=== PATIENT | male | born 1950 | race Caucasian/White ===

== ENCOUNTER → 2016-12-16 | Outpatient (CLI) | payer OTHER ==
[~2016-12-16] MED LIST: FENO160T PO; INSU100V13 SC; LEVO75TA5 PO; METF500T4 PO; SIMV40TA3 PO
== END | disposition home or self-care (01) ==
LOC: STAR 12:16
PROVIDERS: ATTEND Urology
DX: Z01.818 Encounter for other preprocedural examination (principal); N40.1 Benign prostatic hyperplasia with lower urinary tract symptoms; E11.9 Type 2 diabetes mellitus without complications; N13.30 Unspecified hydronephrosis
CPT/HCPCS: 81001; 87086; 93005

== ENCOUNTER 2016-12-21 05:24 | Day surgery (SDC) | payer OTHER ==
[2016-12-16 13:39] LABS: PATH.CAST-FLAG NOT PRESENT; SPERM-FLAG NOT PRESENT; SRC-FLAG NOT PRESENT; XTAL-FLAG NOT PRESENT; YLC-FLAG NOT PRESENT
[~2016-12-21] VITALS: Ht 170.2 cm; Wt 79.1 kg
[2016-12-21] MEDS ORDERED: LACTATED RINGERS 1,000 ML IV SCH (06:23)
[2016-12-21 06:35] VITALS: BP 127/84
[2016-12-21] MEDS ORDERED: PROPOFOL 10 MG/ML, 20ML ONE (07:29)
[2016-12-21] MEDS ORDERED: ROCURONIUM 10 MG/ML ONE (07:29)
[2016-12-21] MEDS ORDERED: CEFAZOLIN 1,000 MG ONE (07:29)
[2016-12-21] MEDS ORDERED: GENTAMICIN 80 MG/2 ML ONE (07:29)
[2016-12-21] MEDS ORDERED: MIDAZOLAM 1 MG/ML, 2ML ONE (07:29)
[2016-12-21] MEDS ORDERED: FENTANYL PF 100 MCG/2ML ONE (07:29)
[2016-12-21] MEDS ORDERED: ONDANSETRON 2MG/ML, 2ML ONE (07:29)
[2016-12-21] MEDS ORDERED: DEXAMETHASONE 4 MG/ML, 1ML ONE (07:29)
[2016-12-21] MEDS ORDERED: SUCCINYLCHOLINE 20 MG/ML, 10ML ONE (07:29)
[2016-12-21] MEDS ORDERED: HYDROmorphone 1 MG/ML, 1ML IV PRN (08:00)
[2016-12-21] MEDS ORDERED: OXYcodone 5 MG/5 ML ORAL.SOL UDC PO PRN (08:00)
[2016-12-21] MEDS ORDERED: ONDANSETRON 2MG/ML, 2ML IVPush PRN (08:00)
[2016-12-21] MEDS ORDERED: MEPERIDINE/PF 25MG/0.5ML IVPush PRN (08:00)
[2016-12-21] MEDS ORDERED: MIDAZOLAM 1 MG/ML, 2ML IV PRN (08:00)
[2016-12-21] MEDS ORDERED: FENTANYL PF 100 MCG/2ML IV PRN (08:00)
[2016-12-21] MEDS ORDERED: ACETAMINOPHEN 325 MG TABLET PO PRN (08:00)
[2016-12-21] MEDS ORDERED: hydrALAzine 20 MG/ML, 1ML IV PRN (08:00)
[2016-12-21] MEDS ORDERED: PROMETHAZINE 25 MG/ML, 1ML IV PRN (08:00)
[2016-12-21] MEDS ORDERED: LABETALOL 5MG/ML, 20ML IV PRN (08:00)
[2016-12-21] MEDS ORDERED: ALBUTEROL SULFATE 2.5 MG/3 ML NPPB PRN (08:00)
== END 2016-12-21 10:40 ==
LOC: OUT 05:24
PROVIDERS: ATTEND Urology
DX: N13.30 Unspecified hydronephrosis (principal); N35.9 Urethral stricture, unspecified; N39.0 Urinary tract infection, site not specified; N40.1 Benign prostatic hyperplasia with lower urinary tract symptoms; N30.20 Other chronic cystitis without hematuria; E11.9 Type 2 diabetes mellitus without complications; Z87.442 Personal history of urinary calculi; Z98.890 Other specified postprocedural states
CPT/HCPCS: 52630; 81001; 82962; 87086; 87106; 88305; J0330; J0690; J1100; J1580; J2250; J2405; J2704; J3010; J7120

== ENCOUNTER → 2017-07-27 | Outpatient (CLI) | payer OTHER ==
[~2017-07-27] MED LIST changes: +ERGO500017 PO; +ERTA1VIA IV; +FERR324T5 PO; +FLUC200T4 PO; +LIDOCAINE-MPF 1%, 5ML ONE; +MIRA25TA PO; +NOVOLOG
== END ==
LOC: RAD 09:05
PROVIDERS: ATTEND Internal Medicine Infectious Disease
DX: Z45.2 Encounter for adjustment and management of vascular access device (principal); N10 Acute pyelonephritis
CPT/HCPCS: 36569; 76937; 77001; C1751

== ENCOUNTER 2017-08-30 10:04 | Emergency (ER) | payer OTHER ==
[~2017-08-30] VITALS: Ht 170.2 cm; Wt 77.3 kg
[~2017-08-30 10:04] MED LIST changes: -LIDOCAINE-MPF 1%, 5ML ONE
[2017-08-30 11:06] LABS: BASOPHILS # (AUTO) 0.06 x10^3/uL (0-0.1); BASOPHILS % (AUTO) 1 % (0-1); EOSINOPHILS # (AUTO) 0.04 x10^3/uL (0-0.4); EOSINOPHILS % (AUTO) 1 % (1-7); LYMPHOCYTES # (AUTO) 1.39 x10^3/uL (1-3.4); LYMPHOCYTES % (AUTO) 15 % (22-44); MD NO; MEAN CORPUSCULAR HEMOGLOBIN 27.4 pg (27.5-34.5); MEAN CORPUSCULAR VOLUME 83.2 fL (81-97); MEAN PLATELET VOLUME 7.7 fL (7.4-10.4); MONOCYTES # (AUTO) 1.05 x10^3/uL (0.2-0.8); MONOCYTES % (AUTO) 11 % (2-9); NEUTROPHILS # (AUTO) 6.89 x10^3/uL (1.8-6.8); NEUTROPHILS % (AUTO) 73 % (42-75); PLATELET COUNT 290 x10^3/uL (130-400); RED BLOOD COUNT 4.44 x10^6/uL (4.38-5.82); RED CELL DISTRIBUTION WIDTH 17.6 % (9.4-14.8)
[2017-08-30 11:09] LABS: ALBUMIN 3.4 g/dL (3.4-5.0); ANION GAP 10 mmol/L (5-15); CALCIUM 9.5 mg/dL (8.5-10.1); CHLORIDE 102 mmol/L (98-107); CREATININE 2.01 mg/dL (0.7-1.3)
[2017-08-30 11:28] LABS: MICROSCOPIC INDICATED
[2017-08-30 11:51] LABS: CULTURE INDICATED? YES
[2017-08-30] MEDS ORDERED: INSULIN REGULAR 100 UNITS/ML, 3ML VIAL ONE (13:24)
[2017-08-30] MEDS ORDERED: INSULIN REGULAR 100 UNITS/ML, 3ML VIAL SQ-INSULIN ONE (13:30)
[2017-08-30 14:53] VITALS: BP 135/72
== END 2017-08-30 14:55 | disposition home or self-care (01) ==
LOC: ED 11:38
DX: R31.0 Gross hematuria (principal); E11.65 Type 2 diabetes mellitus with hyperglycemia; I10 Essential (primary) hypertension; E03.9 Hypothyroidism, unspecified
CPT/HCPCS: 36415; 80048; 81001; 82040; 82962; 85025; 87086; 96372; 99284

== ENCOUNTER → 2017-09-21 | Outpatient (CLI) | payer OTHER ==
[~2017-09-21] MED LIST changes: +LIDOCAINE-MPF 1%, 2ML ONE; -METF500T4 PO; +METF500T5 PO; +VISIPAQUE 270 MG/ML, 50ML BOTTLE ONE
== END | disposition home or self-care (01) ==
LOC: RAD 11:37
PROVIDERS: ATTEND Internal Medicine Infectious Disease
DX: N39.0 Urinary tract infection, site not specified (principal); I82.A12 Acute embolism and thrombosis of left axillary vein; I82.B12 Acute embolism and thrombosis of left subclavian vein
CPT/HCPCS: 36569; 76937; 77001; C1751; C1769; J3490; Q9966

== ENCOUNTER 2017-10-08 08:45 | Emergency (ER) | payer OTHER ==
[~2017-10-08] VITALS: Ht 170.2 cm; Wt 78.8 kg
[~2017-10-08 08:45] MED LIST changes: -LIDOCAINE-MPF 1%, 2ML ONE; -VISIPAQUE 270 MG/ML, 50ML BOTTLE ONE
[2017-10-08 08:56] VITALS: BP 121/71
== END 2017-10-08 11:19 | disposition home or self-care (01) ==
LOC: ED 10:14
DX: Z43.6 Encounter for attention to other artificial openings of urinary tract (principal); E11.22 Type 2 diabetes mellitus with diabetic chronic kidney disease; N18.9 Chronic kidney disease, unspecified; Z79.899 Other long term (current) drug therapy
CPT/HCPCS: 99281

== ENCOUNTER 2017-10-24 06:34 | Day surgery (SDC) | payer OTHER ==
[~2017-10-24] VITALS: Ht 170.2 cm; Wt 79.0 kg
[2017-10-24 07:21] VITALS: BP 135/83
[2017-10-24] MEDS ORDERED: SODIUM CHLORIDE 0.9% 1,000 ML IV SCH (08:48)
[2017-10-24] MEDS ORDERED: MIDAZOLAM 1 MG/ML, 5ML ONE (08:57)
[2017-10-24] MEDS ORDERED: FENTANYL PF 100 MCG/2ML ONE (08:57)
[2017-10-24] MEDS ORDERED: NALOXONE 1 MG/ML, 2ML ONE (08:57)
[2017-10-24] MEDS ORDERED: FLUMAZENIL 0.1 MG/1 ML, 5ML ONE (08:57)
[2017-10-24] MEDS ORDERED: ERTAPENEM 1 GM in SODIUM CHLORIDE 0.9% 50 ML IV ONE (09:00)
[2017-10-24] MEDS ORDERED: LIDOCAINE-MPF 2%, 2ML ONE (09:01)
== END 2017-10-24 11:10 ==
LOC: OUT 06:34
PROVIDERS: ATTEND Urology
DX: N13.5 Crossing vessel and stricture of ureter without hydronephrosis (principal); N39.0 Urinary tract infection, site not specified; B68.9 Taeniasis, unspecified; E11.9 Type 2 diabetes mellitus without complications; I10 Essential (primary) hypertension; E03.9 Hypothyroidism, unspecified; Z79.899 Other long term (current) drug therapy; Z87.891 Personal history of nicotine dependence
CPT/HCPCS: 50435; C1729; C1751; C1769; J1335; J2250; J3010; J3490; J2310

== ENCOUNTER 2017-12-31 08:26 | Emergency (ER) | payer OTHER ==
[~2017-12-31] VITALS: Ht 170.2 cm; Wt 81.6 kg
[~2017-12-31 08:26] MED LIST changes: +DOCU-131 PO; +FERR325T18 PO; +INSU100I28 SQ; +METF500T17 PO; -METF500T5 PO
[2017-12-31 09:17] LABS: BASOPHILS # (AUTO) 0.03 x10^3/uL (0-0.1); BASOPHILS % (AUTO) 0 % (0-1); EOSINOPHILS # (AUTO) 0.09 x10^3/uL (0-0.4); EOSINOPHILS % (AUTO) 1 % (1-7); LYMPHOCYTES # (AUTO) 1.04 x10^3/uL (1-3.4); LYMPHOCYTES % (AUTO) 12 % (22-44); MD NO; MEAN CORPUSCULAR HGB CONC 33.2 g/dL (33.2-36.2); MEAN CORPUSCULAR VOLUME 81.2 fL (81-97); MONOCYTES # (AUTO) 0.84 x10^3/uL (0.2-0.8); MONOCYTES % (AUTO) 10 % (2-9); NEUTROPHILS # (AUTO) 6.39 x10^3/uL (1.8-6.8); NEUTROPHILS % (AUTO) 76 % (42-75); PLATELET COUNT 366 x10^3/uL (130-400); RED BLOOD COUNT 3.89 x10^6/uL (4.38-5.82); RED CELL DISTRIBUTION WIDTH 16.7 % (9.4-14.8)
[2017-12-31 09:29] LABS: CHLORIDE 104 mmol/L (98-107)
[2017-12-31 09:30] LABS: ALANINE AMINOTRANSFERASE 12 U/L (12-78); ALBUMIN 3.1 g/dL (3.4-5.0); ANION GAP 9 mmol/L (5-15); CALCIUM 9.2 mg/dL (8.5-10.1); CREATININE 2.61 mg/dL (0.7-1.3)
[2017-12-31 09:32] LABS: ALKALINE PHOSPHATASE 66 U/L (45-117); BILIRUBIN,TOTAL 0.3 mg/dL (0.2-1.0); TOTAL PROTEIN 8.2 g/dL (6.4-8.2)
[2017-12-31 09:35] LABS: MICROSCOPIC INDICATED
[2017-12-31 09:36] LABS: CULTURE INDICATED? YES
[2017-12-31] MEDS ORDERED: CEFTRIAXONE 1,000 MG ONE (10:06)
[2017-12-31] MEDS ORDERED: CEFTRIAXONE 1,000 MG IM ONE (10:30)
[2017-12-31 10:36] VITALS: BP 118/61
== END 2017-12-31 10:38 | disposition home or self-care (01) ==
LOC: ED 10:14
DX: N30.00 Acute cystitis without hematuria (principal); E11.22 Type 2 diabetes mellitus with diabetic chronic kidney disease; N18.9 Chronic kidney disease, unspecified; E03.9 Hypothyroidism, unspecified; E78.00 Pure hypercholesterolemia, unspecified
CPT/HCPCS: 36415; 80053; 81001; 83690; 85025; 87086; 96372; 99284; J0696; 87106

== ENCOUNTER 2018-01-02 07:49 | Inpatient (IN) | payer OTHER ==
[~2018-01-02] VITALS: Ht 170.2 cm; Wt 84.9 kg
[2018-01-02 08:32] LABS: MICROSCOPIC INDICATED
[2018-01-02 08:35] LABS: CULTURE INDICATED? YES
[2018-01-02 08:39] LABS: ALANINE AMINOTRANSFERASE 13 U/L (12-78); ALBUMIN 3.2 g/dL (3.4-5.0); ANION GAP 9 mmol/L (5-15); CALCIUM 9.2 mg/dL (8.5-10.1); CHLORIDE 103 mmol/L (98-107); CREATININE 2.77 mg/dL (0.7-1.3)
[2018-01-02 08:41] LABS: ALKALINE PHOSPHATASE 89 U/L (45-117); BILIRUBIN,TOTAL 0.2 mg/dL (0.2-1.0); TOTAL PROTEIN 9.1 g/dL (6.4-8.2)
[2018-01-02 09:45] LABS: BASOPHILS # (AUTO) 0.04 x10^3/uL (0-0.1); BASOPHILS % (AUTO) 1 % (0-1); EOSINOPHILS # (AUTO) 0.13 x10^3/uL (0-0.4); EOSINOPHILS % (AUTO) 2 % (1-7); LYMPHOCYTES # (AUTO) 1.18 x10^3/uL (1-3.4); LYMPHOCYTES % (AUTO) 14 % (22-44); MD NO; MEAN CORPUSCULAR HEMOGLOBIN 26.9 pg (27.5-34.5); MEAN CORPUSCULAR HGB CONC 32.9 g/dL (33.2-36.2); MEAN CORPUSCULAR VOLUME 81.6 fL (81-97); MEAN PLATELET VOLUME 7.1 fL (7.4-10.4); MONOCYTES # (AUTO) 0.82 x10^3/uL (0.2-0.8); MONOCYTES % (AUTO) 10 % (2-9); NEUTROPHILS # (AUTO) 6.18 x10^3/uL (1.8-6.8); NEUTROPHILS % (AUTO) 74 % (42-75); PLATELET COUNT 363 x10^3/uL (130-400); RED BLOOD COUNT 3.95 x10^6/uL (4.38-5.82); RED CELL DISTRIBUTION WIDTH 16.7 % (9.4-14.8)
[2018-01-02] MEDS ORDERED: morphine SULFATE 10 MG/ML, 1ML IVPush ONE ×2 (10:00→12:30)
[2018-01-02] MEDS ORDERED: MORPHINE SULFATE 4 MG/ML, 1ML ONE ×2 (10:30→12:17)
[2018-01-02] MEDS ORDERED: OXYcodone/APAP 5/325MG TABLET ONE (12:10)
[2018-01-02] MEDS ORDERED: ONDANSETRON 2MG/ML, 2ML ONE (12:17)
[2018-01-02] MEDS ORDERED: OXYcodone/APAP 5/325MG TABLET PO ONE (12:30)
[2018-01-02] MEDS ORDERED: CEFTRIAXONE PMX 1GM/50ML 50 ML IV ONE (12:30)
[2018-01-02] MEDS ORDERED: ONDANSETRON 2MG/ML, 2ML IVPush ONE (12:30)
[2018-01-02] MEDS ORDERED: CEFTRIAXONE PMX 1GM/50ML 50 ML IV SCH (13:30)
[2018-01-02] MEDS ORDERED: D5%-0.45% NACL 1,000 ML IV SCH (13:35)
[2018-01-02 13:46] VITALS: BP 137/81
[2018-01-02] MEDS ORDERED: HYDROcodone/APAP 5/325 TABLET PO PRN (14:00)
[2018-01-02] MEDS ORDERED: ACETAMINOPHEN 325 MG TABLET PO PRN (14:00)
[2018-01-02] MEDS ORDERED: POLYETHYLENE GLYCOL 17 GM PACKET PO PRN (14:00)
[2018-01-02] MEDS ORDERED: DEXTROSE 4 GM TAB.CHEW PO PRN (14:00)
[2018-01-02] MEDS ORDERED: DOCUSATE 100 MG CAPSULE PO PRN (14:00)
[2018-01-02] MEDS ORDERED: morphine SULFATE 10 MG/ML, 1ML IVPush PRN (14:00)
[2018-01-02] MEDS ORDERED: DEXTROSE 50%, 50ML SYRINGE IVPush PRN (14:00)
[2018-01-02] MEDS ORDERED: GLUCAGON 1 MG IM PRN (14:00)
[2018-01-02] MEDS ORDERED: ONDANSETRON 2MG/ML, 2ML IVPush PRN (14:00)
[2018-01-02 14:35] VITALS: BP 157/81
[2018-01-02] MEDS: INSULIN LISPRO 100 UNITS/ML, PEN SQ-INSULIN SCH ×2 (16:00→21:22)
[2018-01-02 19:25] VITALS: BP 114/61
[2018-01-02] MEDS ORDERED: INSULIN GLARGINE 100 UNITS/ML, PEN SQ-INSULIN SCH (21:00)
[2018-01-02] MEDS: SODIUM CHLORIDE FLUSH 10ML SYR IVF SCH (21:03)
[2018-01-03 01:28] VITALS: BP 121/72
[2018-01-03 05:27] LABS: BASOPHILS # (AUTO) 0.04 x10^3/uL (0-0.1); BASOPHILS % (AUTO) 1 % (0-1); EOSINOPHILS # (AUTO) 0.16 x10^3/uL (0-0.4); EOSINOPHILS % (AUTO) 3 % (1-7); LYMPHOCYTES # (AUTO) 1.21 x10^3/uL (1-3.4); LYMPHOCYTES % (AUTO) 19 % (22-44); MD NO; MEAN CORPUSCULAR HEMOGLOBIN 27.1 pg (27.5-34.5); MEAN CORPUSCULAR VOLUME 82.1 fL (81-97); MEAN PLATELET VOLUME 7.4 fL (7.4-10.4); MONOCYTES # (AUTO) 0.84 x10^3/uL (0.2-0.8); MONOCYTES % (AUTO) 13 % (2-9); NEUTROPHILS % (AUTO) 65 % (42-75); PLATELET COUNT 295 x10^3/uL (130-400); RED BLOOD COUNT 3.63 x10^6/uL (4.38-5.82); RED CELL DISTRIBUTION WIDTH 16.3 % (9.4-14.8)
[2018-01-03 05:34] LABS: ANION GAP 10 mmol/L (5-15); CHLORIDE 101 mmol/L (98-107)
[2018-01-03 05:35] LABS: CREATININE 2.79 mg/dL (0.7-1.3)
[2018-01-03 06:48] VITALS: BP 114/70
[2018-01-03] MEDS: INSULIN LISPRO 100 UNITS/ML, PEN SQ-INSULIN SCH (07:42)
[2018-01-03] MEDS ORDERED: LEVOTHYROXINE 75 MCG TABLET PO SCH (09:00)
[2018-01-03] MEDS: SODIUM CHLORIDE FLUSH 10ML SYR IVF SCH (09:00)
[2018-01-03] MEDS ORDERED: INSULIN GLARGINE 100 UNITS/ML, PEN SQ-INSULIN SCH (09:00)
[2018-01-03] MEDS ORDERED: SENNA/DOCUSATE TABLET PO SCH (09:00)
== END 2018-01-03 11:40 | disposition home or self-care (01) | DRG 683 ==
LOC: ED 10:09 → EDIP 12:51 → 4NOR 13:34 → DCLOUNGE 01-03 11:34
PROVIDERS: ADMIT Family Medicine; ATTEND Family Medicine
DX: N17.9 Acute kidney failure, unspecified (principal); N39.0 Urinary tract infection, site not specified; N13.6 Pyonephrosis; D64.9 Anemia, unspecified; E03.9 Hypothyroidism, unspecified; E11.22 Type 2 diabetes mellitus with diabetic chronic kidney disease; E78.00 Pure hypercholesterolemia, unspecified; E78.5 Hyperlipidemia, unspecified; N18.9 Chronic kidney disease, unspecified; N26.1 Atrophy of kidney (terminal); Z80.42 Family history of malignant neoplasm of prostate; Z83.3 Family history of diabetes mellitus; Z87.440 Personal history of urinary (tract) infections; Z90.5 Acquired absence of kidney; Z93.6 Other artificial openings of urinary tract status
CPT/HCPCS: 36415; 74176; 76770; 80048; 80053; 81001; 82962; 83735; 85025; 87086; 87106; 96374; 96375; 96376; 99285; G0378; J0696; J2405; J1815; J2270

== ENCOUNTER 2018-01-27 11:24 | Emergency (ER) | payer OTHER ==
[~2018-01-27] VITALS: Ht 170.2 cm; Wt 83.0 kg
[2018-01-27 12:30] LABS: BASOPHILS # (AUTO) 0.08 x10^3/uL (0-0.1); BASOPHILS % (AUTO) 1 % (0-1); EOSINOPHILS # (AUTO) 0.19 x10^3/uL (0-0.4); EOSINOPHILS % (AUTO) 3 % (1-7); LYMPHOCYTES # (AUTO) 1.29 x10^3/uL (1-3.4); LYMPHOCYTES % (AUTO) 19 % (22-44); MD NO; MEAN CORPUSCULAR HEMOGLOBIN 26.7 pg (27.5-34.5); MEAN CORPUSCULAR HGB CONC 32.8 g/dL (33.2-36.2); MEAN CORPUSCULAR VOLUME 81.5 fL (81-97); MEAN PLATELET VOLUME 7.2 fL (7.4-10.4); MONOCYTES # (AUTO) 0.64 x10^3/uL (0.2-0.8); MONOCYTES % (AUTO) 9 % (2-9); NEUTROPHILS # (AUTO) 4.63 x10^3/uL (1.8-6.8); NEUTROPHILS % (AUTO) 68 % (42-75); PLATELET COUNT 362 x10^3/uL (130-400); RED BLOOD COUNT 3.87 x10^6/uL (4.38-5.82); RED CELL DISTRIBUTION WIDTH 16.5 % (9.4-14.8)
[2018-01-27] MEDS ORDERED: PHENAZOPYRIDINE 200 MG TABLET PO ONE (12:30)
[2018-01-27 12:44] LABS: ALANINE AMINOTRANSFERASE 19 U/L (12-78); ALBUMIN 2.9 g/dL (3.4-5.0); ANION GAP 7 mmol/L (5-15); CHLORIDE 108 mmol/L (98-107); CREATININE 2.63 mg/dL (0.7-1.3)
[2018-01-27 12:47] LABS: ALKALINE PHOSPHATASE 72 U/L (45-117); BILIRUBIN,TOTAL 0.2 mg/dL (0.2-1.0); TOTAL PROTEIN 8.1 g/dL (6.4-8.2)
[2018-01-27 12:55] LABS: MICROSCOPIC INDICATED
[2018-01-27 13:14] LABS: CULTURE INDICATED? YES
[2018-01-27 13:16] LABS: MICROSCOPIC AUTO
[2018-01-27 13:17] LABS: CULTURE INDICATED? YES
[2018-01-27] MEDS ORDERED: OXYcodone/APAP 5/325MG TABLET PO ONE (13:30)
[2018-01-27] MEDS ORDERED: PHENAZOPYRIDINE 200 MG TABLET ONE (13:31)
[2018-01-27] MEDS ORDERED: OXYcodone/APAP 5/325MG TABLET ONE (13:32)
[2018-01-27] MEDS ORDERED: OPIUM/BELLADONNA SUPP.RECT 16.2-60 MG PR ONE (15:30)
[2018-01-27 16:05] VITALS: BP 131/73
== END 2018-01-27 16:15 | disposition home or self-care (01) ==
LOC: ED 12:11
DX: N32.89 Other specified disorders of bladder (principal); E11.9 Type 2 diabetes mellitus without complications; E78.00 Pure hypercholesterolemia, unspecified; E03.9 Hypothyroidism, unspecified; Z87.891 Personal history of nicotine dependence
CPT/HCPCS: 36415; 76770; 80053; 81001; 85025; 87086; 87106; 99285

== ENCOUNTER → 2018-02-23 | Outpatient (CLI) | payer OTHER ==
[2018-02-23 09:50] LABS: BASOPHILS # (AUTO) 0.05 x10^3/uL (0-0.1); BASOPHILS % (AUTO) 0 % (0-1); EOSINOPHILS # (AUTO) 0.12 x10^3/uL (0-0.4); EOSINOPHILS % (AUTO) 1 % (1-7); LYMPHOCYTES # (AUTO) 1.47 x10^3/uL (1-3.4); LYMPHOCYTES % (AUTO) 13 % (22-44); MD NO; MEAN CORPUSCULAR HEMOGLOBIN 26.3 pg (27.5-34.5); MEAN CORPUSCULAR HGB CONC 32.8 g/dL (33.2-36.2); MEAN CORPUSCULAR VOLUME 80.4 fL (81-97); MONOCYTES # (AUTO) 0.96 x10^3/uL (0.2-0.8); MONOCYTES % (AUTO) 9 % (2-9); NEUTROPHILS # (AUTO) 8.33 x10^3/uL (1.8-6.8); NEUTROPHILS % (AUTO) 76 % (42-75); PLATELET COUNT 471 x10^3/uL (130-400); RED BLOOD COUNT 4.53 x10^6/uL (4.38-5.82); RED CELL DISTRIBUTION WIDTH 16.7 % (9.4-14.8)
[2018-02-23 09:55] LABS: INTERNATIONAL NORMALIZED RATIO 1.02 (0.93-1.1); PROTHROMBIN TIME 10.8 Seconds (9.6-11.5)
[2018-02-23 09:56] LABS: ALANINE AMINOTRANSFERASE 15 U/L (12-78); ALBUMIN 3.6 g/dL (3.4-5.0); ANION GAP 9 mmol/L (5-15); CHLORIDE 105 mmol/L (98-107); CREATININE 3.12 mg/dL (0.7-1.3)
[2018-02-23 09:59] LABS: ALKALINE PHOSPHATASE 68 U/L (45-117); BILIRUBIN,TOTAL 0.2 mg/dL (0.2-1.0); TOTAL PROTEIN 9.7 g/dL (6.4-8.2)
[2018-02-23 12:41] LABS: MICROSCOPIC INDICATED
== END | disposition home or self-care (01) ==
LOC: STAR 08:27
PROVIDERS: ATTEND Family Medicine
DX: Z01.818 Encounter for other preprocedural examination (principal); N35.919 Unspecified urethral stricture, male, unspecified site; R00.0 Tachycardia, unspecified
CPT/HCPCS: 36415; 80053; 81001; 85025; 85610; 85730; 87086; 87106; 93005

== ENCOUNTER 2018-03-26 13:17 | Inpatient (IN) | payer MEDICARE, OTHER ==
[~2018-03-26] VITALS: Ht 170.2 cm; Wt 81.3 kg
[~2018-03-26 13:17] MED LIST changes: +INSU100I11 SQ-INSULIN
[2018-03-26 14:21] LABS: BASOPHILS # (AUTO) 0.13 x10^3/uL (0-0.1); BASOPHILS % (AUTO) 2 % (0-1); EOSINOPHILS # (AUTO) 0.32 x10^3/uL (0-0.4); EOSINOPHILS % (AUTO) 4 % (1-7); LYMPHOCYTES # (AUTO) 1.68 x10^3/uL (1-3.4); LYMPHOCYTES % (AUTO) 20 % (22-44); MD NO; MEAN CORPUSCULAR HEMOGLOBIN 27.6 pg (27.5-34.5); MEAN CORPUSCULAR HGB CONC 33.3 g/dL (33.2-36.2); MEAN PLATELET VOLUME 7.2 fL (7.4-10.4); MONOCYTES # (AUTO) 0.63 x10^3/uL (0.2-0.8); MONOCYTES % (AUTO) 8 % (2-9); NEUTROPHILS # (AUTO) 5.66 x10^3/uL (1.8-6.8); NEUTROPHILS % (AUTO) 67 % (42-75); PLATELET COUNT 393 x10^3/uL (130-400); RED BLOOD COUNT 3.82 x10^6/uL (4.38-5.82); RED CELL DISTRIBUTION WIDTH 19.1 % (9.4-14.8)
[2018-03-26 14:33] LABS: ALANINE AMINOTRANSFERASE 19 U/L (12-78); ALBUMIN 3.5 g/dL (3.4-5.0); ANION GAP 12 mmol/L (5-15); CALCIUM 9.2 mg/dL (8.5-10.1); CHLORIDE 101 mmol/L (98-107); CREATININE 5.75 mg/dL (0.7-1.3)
[2018-03-26 14:35] LABS: ALKALINE PHOSPHATASE 78 U/L (45-117); BILIRUBIN,TOTAL 0.2 mg/dL (0.2-1.0); TOTAL PROTEIN 8.7 g/dL (6.4-8.2)
--- NOTE | 2018-03-26 15:29 | NUR ---
Pt ambulatory from [facility] to 21
--- NOTE | 2018-03-26 15:47 | NUR ---
report rcv'd from Leatha TOMAS. Care assumed. Pt to CT
[2018-03-26 15:51] LABS: CULTURE INDICATED? YES; MICROSCOPIC INDICATED
[2018-03-26] MEDS ORDERED: INSU100C5 SQ-INSULIN (16:01)
[2018-03-26] MEDS ORDERED: SODIUM CHLORIDE 0.9% 1,000 ML IV ONE (16:08)
[2018-03-26] MEDS ORDERED: GLUCAGON 1 MG IM PRN (17:00)
[2018-03-26] MEDS ORDERED: SODIUM CHLORIDE FLUSH 10ML SYR IVF ONE (17:00)
[2018-03-26] MEDS ORDERED: DEXTROSE 4 GM TAB.CHEW PO PRN (17:00)
[2018-03-26] MEDS ORDERED: POLYETHYLENE GLYCOL 17 GM PACKET PO PRN (17:00)
[2018-03-26] MEDS ORDERED: DEXTROSE 50%, 50ML SYRINGE IVPush PRN (17:00)
[2018-03-26] MEDS ORDERED: HYDROcodone/APAP 5/325 TABLET PO PRN (17:00)
[2018-03-26] MEDS ORDERED: DOCUSATE 100 MG CAPSULE PO PRN (17:00)
[2018-03-26] MEDS ORDERED: morphine SULFATE 10 MG/ML, 1ML IVPush PRN (17:00)
--- NOTE | 2018-03-26 17:33 | NUR ---
HANCOCK CATH PLACED, CONTINUOUS BLADDER IRRIGATION IN PROGRESS, CLEAR DRAINAGE.
--- NOTE | 2018-03-26 17:47 | NUR ---
report called. cont bladder irrigation in progress. ivf unfusing at time of transfer
[2018-03-26] MEDS ORDERED: LACTATED RINGERS 500 ML IVBOLUS ONE (19:30)
[2018-03-26 20:00] VITALS: BP 128/63
[2018-03-26] MEDS: SODIUM CHLORIDE FLUSH 10ML SYR IVF SCH (21:00)
[2018-03-26] MEDS: FAMOTIDINE 20 MG TABLET PO SCH (21:45)
[2018-03-26] MEDS: INSULIN LISPRO 100 UNITS/ML, PEN SQ-INSULIN SCH (22:22)
[2018-03-26] MEDS: INSULIN GLARGINE 100 UNITS/ML, PEN SQ-INSULIN SCH (22:23)
[2018-03-27 01:15] VITALS: BP 121/68
[2018-03-27] MEDS: SODIUM CHLORIDE 0.9% 1,000 ML IV SCH ×2 (05:45→15:15)
[2018-03-27 06:00] LABS: BASOPHILS # (AUTO) 0.08 x10^3/uL (0-0.1); BASOPHILS % (AUTO) 1 % (0-1); EOSINOPHILS # (AUTO) 0.37 x10^3/uL (0-0.4); EOSINOPHILS % (AUTO) 4 % (1-7); LYMPHOCYTES # (AUTO) 3.11 x10^3/uL (1-3.4); LYMPHOCYTES % (AUTO) 36 % (22-44); MD NO; MEAN CORPUSCULAR HGB CONC 32.4 g/dL (33.2-36.2); MEAN CORPUSCULAR VOLUME 83.5 fL (81-97); MEAN PLATELET VOLUME 7.5 fL (7.4-10.4); MONOCYTES # (AUTO) 0.87 x10^3/uL (0.2-0.8); MONOCYTES % (AUTO) 10 % (2-9); NEUTROPHILS % (AUTO) 49 % (42-75); PLATELET COUNT 369 x10^3/uL (130-400); RED BLOOD COUNT 3.45 x10^6/uL (4.38-5.82)
[2018-03-27 06:06] LABS: ALBUMIN 3.1 g/dL (3.4-5.0); ANION GAP 12 mmol/L (5-15); CALCIUM 8.5 mg/dL (8.5-10.1); CHLORIDE 110 mmol/L (98-107)
[2018-03-27 06:07] LABS: CREATININE 5.11 mg/dL (0.7-1.3)
[2018-03-27 06:19] VITALS: BP 126/75
[2018-03-27] MEDS: INSULIN LISPRO 100 UNITS/ML, PEN SQ-INSULIN SCH ×4 (07:00→22:09)
[2018-03-27] MEDS: SODIUM CHLORIDE FLUSH 10ML SYR IVF SCH ×2 (08:26→21:53)
[2018-03-27] MEDS: INSULIN GLARGINE 100 UNITS/ML, PEN SQ-INSULIN SCH ×2 (08:26→22:09)
[2018-03-27] MEDS: FENOFIBRATE 54 MG TABLET PO SCH (08:52)
[2018-03-27] MEDS: LEVOTHYROXINE 75 MCG TABLET PO SCH (08:52)
[2018-03-27] MEDS: FAMOTIDINE 20 MG TABLET PO SCH (08:52)
[2018-03-27] MEDS: SENNA/DOCUSATE TABLET PO SCH (08:52)
[2018-03-27 12:16] VITALS: BP 134/76
[2018-03-27 19:12] VITALS: BP 124/68
[2018-03-27] MEDS: ONDANSETRON 2MG/ML, 2ML IVPush PRN (21:53)
[2018-03-28 01:26] VITALS: BP 122/73
[2018-03-28] MEDS: ACETAMINOPHEN 325 MG TABLET PO PRN ×2 (01:33→22:03)
[2018-03-28 06:33] LABS: ANION GAP 12 mmol/L (5-15); CALCIUM 7.8 mg/dL (8.5-10.1); CHLORIDE 113 mmol/L (98-107)
[2018-03-28 06:40] LABS: % IRON SATURATION 23 % (20-55); ALANINE AMINOTRANSFERASE 10 U/L (12-78); ALKALINE PHOSPHATASE 48 U/L (45-117); BILIRUBIN,TOTAL 0.3 mg/dL (0.2-1.0); CREATININE 4.89 mg/dL (0.7-1.3); IRON LEVEL 66 mcg/dL (65-175); TOTAL IRON BINDING CAPACITY 292 mcg/dL (250-450); TOTAL PROTEIN 7.2 g/dL (6.4-8.2)
[2018-03-28 06:41] LABS: BASOPHILS # (AUTO) 0.08 x10^3/uL (0-0.1); BASOPHILS % (AUTO) 1 % (0-1); EOSINOPHILS # (AUTO) 0.34 x10^3/uL (0-0.4); EOSINOPHILS % (AUTO) 6 % (1-7); LYMPHOCYTES # (AUTO) 1.81 x10^3/uL (1-3.4); LYMPHOCYTES % (AUTO) 31 % (22-44); MD NO; MEAN CORPUSCULAR HEMOGLOBIN 27.6 pg (27.5-34.5); MEAN CORPUSCULAR HGB CONC 33.2 g/dL (33.2-36.2); MEAN CORPUSCULAR VOLUME 83.2 fL (81-97); MEAN PLATELET VOLUME 7.5 fL (7.4-10.4); MONOCYTES # (AUTO) 0.61 x10^3/uL (0.2-0.8); MONOCYTES % (AUTO) 10 % (2-9); NEUTROPHILS # (AUTO) 3.05 x10^3/uL (1.8-6.8); NEUTROPHILS % (AUTO) 52 % (42-75); PLATELET COUNT 299 x10^3/uL (130-400); RED BLOOD COUNT 3.28 x10^6/uL (4.38-5.82); RED CELL DISTRIBUTION WIDTH 19.2 % (9.4-14.8)
[2018-03-28] MEDS: INSULIN LISPRO 100 UNITS/ML, PEN SQ-INSULIN SCH ×4 (07:00→21:00)
[2018-03-28 07:38] VITALS: BP 129/73
[2018-03-28] MEDS: INSULIN GLARGINE 100 UNITS/ML, PEN SQ-INSULIN SCH ×2 (08:51→22:25)
[2018-03-28] MEDS: LEVOTHYROXINE 75 MCG TABLET PO SCH (08:52)
[2018-03-28] MEDS: FENOFIBRATE 54 MG TABLET PO SCH (08:52)
[2018-03-28] MEDS: SENNA/DOCUSATE TABLET PO SCH (08:52)
[2018-03-28] MEDS: FAMOTIDINE 20 MG TABLET PO SCH (08:52)
[2018-03-28] MEDS ORDERED: CEFTRIAXONE PMX 1GM/50ML 50 ML IV SCH (09:00)
[2018-03-28] MEDS ORDERED: ARANESP 100 MCG/ML **ESRD SQ SCH (11:30)
[2018-03-28] MEDS: SODIUM CHLORIDE FLUSH 10ML SYR IVF SCH ×2 (11:36→22:04)
[2018-03-28 15:10] VITALS: BP 112/75
[2018-03-28 18:47] VITALS: BP 125/74
[2018-03-29 01:44] VITALS: BP 130/75
[2018-03-29] MEDS: INSULIN LISPRO 100 UNITS/ML, PEN SQ-INSULIN SCH ×4 (06:23→21:00)
[2018-03-29] MEDS: ACETAMINOPHEN 325 MG TABLET PO PRN (06:24)
[2018-03-29 06:30] VITALS: BP 149/83
[2018-03-29 06:34] LABS: BASOPHILS # (AUTO) 0.07 x10^3/uL (0-0.1); BASOPHILS % (AUTO) 1 % (0-1); EOSINOPHILS % (AUTO) 6 % (1-7); LYMPHOCYTES # (AUTO) 2.42 x10^3/uL (1-3.4); LYMPHOCYTES % (AUTO) 34 % (22-44); MD NO; MEAN CORPUSCULAR HEMOGLOBIN 27.9 pg (27.5-34.5); MEAN CORPUSCULAR HGB CONC 33.8 g/dL (33.2-36.2); MEAN CORPUSCULAR VOLUME 82.5 fL (81-97); MEAN PLATELET VOLUME 7.2 fL (7.4-10.4); MONOCYTES # (AUTO) 0.73 x10^3/uL (0.2-0.8); MONOCYTES % (AUTO) 10 % (2-9); NEUTROPHILS # (AUTO) 3.62 x10^3/uL (1.8-6.8); NEUTROPHILS % (AUTO) 50 % (42-75); PLATELET COUNT 331 x10^3/uL (130-400); RED BLOOD COUNT 3.41 x10^6/uL (4.38-5.82); RED CELL DISTRIBUTION WIDTH 19.2 % (9.4-14.8)
[2018-03-29 06:41] LABS: ALANINE AMINOTRANSFERASE 11 U/L (12-78); ALBUMIN 3.1 g/dL (3.4-5.0); ANION GAP 10 mmol/L (5-15); CALCIUM 8.9 mg/dL (8.5-10.1); CHLORIDE 112 mmol/L (98-107); CREATININE 5.36 mg/dL (0.7-1.3)
[2018-03-29 06:43] LABS: ALKALINE PHOSPHATASE 57 U/L (45-117); BILIRUBIN,TOTAL 0.2 mg/dL (0.2-1.0); TOTAL PROTEIN 7.5 g/dL (6.4-8.2)
[2018-03-29] MEDS: ONDANSETRON 2MG/ML, 2ML IVPush PRN (07:06)
[2018-03-29] MEDS: FENOFIBRATE 54 MG TABLET PO SCH (09:12)
[2018-03-29] MEDS: SENNA/DOCUSATE TABLET PO SCH ×2 (09:12→09:19)
[2018-03-29] MEDS: FAMOTIDINE 20 MG TABLET PO SCH (09:12)
[2018-03-29] MEDS: LEVOTHYROXINE 75 MCG TABLET PO SCH (09:13)
[2018-03-29] MEDS: SODIUM CHLORIDE FLUSH 10ML SYR IVF SCH ×2 (09:16→22:22)
[2018-03-29] MEDS: INSULIN GLARGINE 100 UNITS/ML, PEN SQ-INSULIN SCH ×2 (09:16→22:45)
[2018-03-29 13:14] VITALS: BP 124/73
[2018-03-29] MEDS: SODIUM CHLORIDE 0.45% 1,000 ML IV SCH (13:55)
[2018-03-29 18:44] VITALS: BP 127/74
[2018-03-30] MEDS: SODIUM CHLORIDE 0.45% 1,000 ML IV SCH (00:42)
[2018-03-30] MEDS: ONDANSETRON 2MG/ML, 2ML IVPush PRN (00:42)
[2018-03-30 00:57] VITALS: BP 138/80
[2018-03-30 06:09] LABS: BASOPHILS # (AUTO) 0.08 x10^3/uL (0-0.1); BASOPHILS % (AUTO) 1 % (0-1); EOSINOPHILS # (AUTO) 0.34 x10^3/uL (0-0.4); EOSINOPHILS % (AUTO) 5 % (1-7); LYMPHOCYTES # (AUTO) 2.04 x10^3/uL (1-3.4); LYMPHOCYTES % (AUTO) 31 % (22-44); MD NO; MEAN CORPUSCULAR HEMOGLOBIN 27.5 pg (27.5-34.5); MEAN CORPUSCULAR HGB CONC 32.9 g/dL (33.2-36.2); MEAN CORPUSCULAR VOLUME 83.4 fL (81-97); MEAN PLATELET VOLUME 7.5 fL (7.4-10.4); MONOCYTES # (AUTO) 0.59 x10^3/uL (0.2-0.8); MONOCYTES % (AUTO) 9 % (2-9); NEUTROPHILS # (AUTO) 3.53 x10^3/uL (1.8-6.8); NEUTROPHILS % (AUTO) 54 % (42-75); PLATELET COUNT 309 x10^3/uL (130-400); RED BLOOD COUNT 3.34 x10^6/uL (4.38-5.82); RED CELL DISTRIBUTION WIDTH 19.1 % (9.4-14.8)
[2018-03-30 06:10] LABS: ANION GAP 7 mmol/L (5-15); CALCIUM 8.6 mg/dL (8.5-10.1); CHLORIDE 111 mmol/L (98-107); CREATININE 4.98 mg/dL (0.7-1.3)
[2018-03-30] MEDS: INSULIN LISPRO 100 UNITS/ML, PEN SQ-INSULIN SCH ×2 (06:18→11:15)
[2018-03-30 06:32] VITALS: BP 127/80
[2018-03-30] MEDS: FAMOTIDINE 20 MG TABLET PO SCH (09:02)
[2018-03-30] MEDS: FENOFIBRATE 54 MG TABLET PO SCH (09:02)
[2018-03-30] MEDS: LEVOTHYROXINE 75 MCG TABLET PO SCH (09:03)
[2018-03-30] MEDS: SENNA/DOCUSATE TABLET PO SCH (09:03)
[2018-03-30] MEDS: SODIUM CHLORIDE FLUSH 10ML SYR IVF SCH (09:04)
[2018-03-30] MEDS: INSULIN GLARGINE 100 UNITS/ML, PEN SQ-INSULIN SCH (09:04)
[2018-03-30 14:16] VITALS: BP 113/66
== END 2018-03-30 15:35 | disposition home or self-care (01) | DRG 919 ==
LOC: ED 15:41 → SUATTDRO 16:36 → EDIP 17:00 → 4NOR 17:54 → DCLOUNGE 03-30 15:25
PROVIDERS: ADMIT Family Medicine; ATTEND Family Medicine
PROC: 0T9B70Z Drainage of Bladder with Drainage Device, Via Natural or Artificial Opening (ICD-10-PCS; principal; 2018-03-28)
DX: N99.820 Postprocedural hemorrhage of a genitourinary system organ or structure following a genitourinary system procedure (principal); N17.0 Acute kidney failure with tubular necrosis; I12.0 Hypertensive chronic kidney disease with stage 5 chronic kidney disease or end stage renal disease; N13.30 Unspecified hydronephrosis; N18.5 Chronic kidney disease, stage 5; R31.0 Gross hematuria; D63.8 Anemia in other chronic diseases classified elsewhere; E03.9 Hypothyroidism, unspecified; E11.22 Type 2 diabetes mellitus with diabetic chronic kidney disease; E78.00 Pure hypercholesterolemia, unspecified; G51.0 Bell's palsy; E78.5 Hyperlipidemia, unspecified; N25.0 Renal osteodystrophy; N40.0 Benign prostatic hyperplasia without lower urinary tract symptoms; N42.89 Other specified disorders of prostate; Z80.42 Family history of malignant neoplasm of prostate; Z86.73 Personal history of transient ischemic attack (TIA), and cerebral infarction without residual deficits; Z87.440 Personal history of urinary (tract) infections; Z90.5 Acquired absence of kidney; Z90.79 Acquired absence of other genital organ(s); Z93.6 Other artificial openings of urinary tract status; Z79.899 Other long term (current) drug therapy; Y83.8 Other surgical procedures as the cause of abnormal reaction of the patient, or of later complication, without mention of misadventure at the time of the procedure
CPT/HCPCS: 36415; 51702; 74176; 80053; 80069; 81001; 82306; 82728; 82962; 83540; 83550; 83690; 83735; 83970; 84100; 84550; 85025; 87040; 87086; 99285; G0378; J0696; J0882; J2405; J7120; J1815; J7030

== ENCOUNTER 2018-04-01 15:47 | Inpatient (IN) | payer MEDICARE, OTHER ==
[~2018-04-01] VITALS: Ht 170.2 cm; Wt 80.0 kg
[~2018-04-01 15:47] MED LIST changes: +INSU100C5 SQ-INSULIN
[2018-04-01 16:47] LABS: CULTURE INDICATED? YES; MICROSCOPIC INDICATED
[2018-04-01 17:00] LABS: BASOPHILS # (AUTO) 0.15 x10^3/uL (0-0.1); BASOPHILS % (AUTO) 2 % (0-1); EOSINOPHILS # (AUTO) 0.31 x10^3/uL (0-0.4); EOSINOPHILS % (AUTO) 4 % (1-7); LYMPHOCYTES # (AUTO) 1.58 x10^3/uL (1-3.4); LYMPHOCYTES % (AUTO) 18 % (22-44); MD NO; MEAN CORPUSCULAR HEMOGLOBIN 27.9 pg (27.5-34.5); MEAN CORPUSCULAR HGB CONC 33.2 g/dL (33.2-36.2); MEAN CORPUSCULAR VOLUME 84.1 fL (81-97); MEAN PLATELET VOLUME 7.3 fL (7.4-10.4); MONOCYTES # (AUTO) 0.78 x10^3/uL (0.2-0.8); MONOCYTES % (AUTO) 9 % (2-9); NEUTROPHILS # (AUTO) 5.81 x10^3/uL (1.8-6.8); NEUTROPHILS % (AUTO) 67 % (42-75); PLATELET COUNT 346 x10^3/uL (130-400); RED BLOOD COUNT 3.45 x10^6/uL (4.38-5.82); RED CELL DISTRIBUTION WIDTH 19.4 % (9.4-14.8)
[2018-04-01 17:12] LABS: ALBUMIN 3.4 g/dL (3.4-5.0); ANION GAP 8 mmol/L (5-15); CALCIUM 8.9 mg/dL (8.5-10.1); CHLORIDE 109 mmol/L (98-107); CREATININE 5.26 mg/dL (0.7-1.3)
[2018-04-01] MEDS ORDERED: CEFTRIAXONE PMX 1GM/50ML 50 ML ONE (17:14)
--- NOTE | 2018-04-01 17:15 | NUR ---
no bc per dr allen
[2018-04-01] MEDS ORDERED: CEFTRIAXONE PMX 1GM/50ML 50 ML IVPB ONE (18:00)
--- NOTE | 2018-04-01 19:03 | NUR ---
ASSUMED CARE OF PT REPORT FROM ANNE-MARIE
--- NOTE | 2018-04-01 19:33 | NUR ---
AWAITING ADMIT HOUSE STAFF AT BEDSIDE
[2018-04-01] MEDS ORDERED: POLYETHYLENE GLYCOL 17 GM PACKET PO PRN (20:00)
[2018-04-01] MEDS ORDERED: BISACODYL 10 MG SUPP PR PRN (20:00)
[2018-04-01 20:09] LABS: HEMOGLOBIN A1C 8.3 % (4.2-6.3)
--- NOTE | 2018-04-01 20:29 | NUR ---
REPORT TO ASHLEY PT TO ROOM WITH TECH
[2018-04-01 22:24] VITALS: BP 143/81
[2018-04-01] MEDS: MICAFUNGIN 100 MG in SODIUM CHLORIDE 0.9% 100 ML IV SCH (22:37)
[2018-04-01] MEDS: SODIUM CHLORIDE 0.9% 1,000 ML IV SCH (22:38)
[2018-04-01] MEDS: HEPARIN 5,000 UNITS/ML, 1ML SQ SCH (22:53)
[2018-04-01] MEDS: INSULIN LISPRO 100 UNITS/ML, PEN SQ-INSULIN SCH (22:54)
[2018-04-01] MEDS: ERGOCALCIFEROL 50,000 UNIT CAPSULE PO SCH (22:54)
[2018-04-02 01:00] VITALS: BP 125/73
[2018-04-02] MEDS: OXYcodone IR 5MG TABLET PO PRN ×3 (02:19→21:18)
[2018-04-02] MEDS: SODIUM CHLORIDE 0.9% 1,000 ML IV SCH ×2 (03:40→15:24)
[2018-04-02] MEDS: ONDANSETRON 2MG/ML, 2ML IVPush PRN ×2 (04:55→14:12)
[2018-04-02] MEDS: LEVOTHYROXINE 75 MCG TABLET PO SCH (04:55)
[2018-04-02 05:04] LABS: CHLORIDE,URINE RANDOM 78 mmol/L; POTASSIUM,URINE RANDOM 26 mmol/L; SODIUM,URINE RANDOM 77 mmol/L
[2018-04-02 05:56] LABS: BASOPHILS # (AUTO) 0.05 x10^3/uL (0-0.1); BASOPHILS % (AUTO) 1 % (0-1); EOSINOPHILS # (AUTO) 0.26 x10^3/uL (0-0.4); EOSINOPHILS % (AUTO) 3 % (1-7); LYMPHOCYTES # (AUTO) 1.19 x10^3/uL (1-3.4); LYMPHOCYTES % (AUTO) 15 % (22-44); MD NO; MEAN CORPUSCULAR HEMOGLOBIN 27.9 pg (27.5-34.5); MEAN CORPUSCULAR HGB CONC 33.5 g/dL (33.2-36.2); MEAN CORPUSCULAR VOLUME 83.4 fL (81-97); MEAN PLATELET VOLUME 7.6 fL (7.4-10.4); MONOCYTES # (AUTO) 0.82 x10^3/uL (0.2-0.8); MONOCYTES % (AUTO) 10 % (2-9); NEUTROPHILS # (AUTO) 5.89 x10^3/uL (1.8-6.8); NEUTROPHILS % (AUTO) 72 % (42-75); PLATELET COUNT 317 x10^3/uL (130-400); RED BLOOD COUNT 3.22 x10^6/uL (4.38-5.82); RED CELL DISTRIBUTION WIDTH 19.5 % (9.4-14.8)
[2018-04-02 06:06] LABS: ALBUMIN 3.1 g/dL (3.4-5.0); CALCIUM 8.3 mg/dL (8.5-10.1); CHLORIDE 112 mmol/L (98-107)
[2018-04-02 06:14] LABS: ALANINE AMINOTRANSFERASE 10 U/L (12-78); ALKALINE PHOSPHATASE 47 U/L (45-117); ANION GAP 10 mmol/L (5-15); BILIRUBIN,TOTAL 0.2 mg/dL (0.2-1.0); CREATININE 5.07 mg/dL (0.7-1.3); TOTAL PROTEIN 7.2 g/dL (6.4-8.2)
[2018-04-02] MEDS: HEPARIN 5,000 UNITS/ML, 1ML SQ SCH ×3 (07:00→21:34)
[2018-04-02 07:41] VITALS: BP 130/79
[2018-04-02] MEDS: SENNA/DOCUSATE TABLET PO SCH (08:12)
[2018-04-02] MEDS: ACETAMINOPHEN 325 MG TABLET PO PRN ×2 (08:12→14:12)
[2018-04-02] MEDS: INSULIN GLARGINE 100 UNITS/ML, PEN SQ-INSULIN SCH (08:12)
[2018-04-02] MEDS: INSULIN LISPRO 100 UNITS/ML, PEN SQ-INSULIN SCH ×4 (08:13→21:33)
[2018-04-02] MEDS: FENOFIBRATE 145 MG TABLET PO SCH (08:13)
[2018-04-02 13:55] VITALS: BP 130/73
[2018-04-02] MEDS ORDERED: CEFTRIAXONE PMX 1GM/50ML 50 ML IV SCH (17:30)
[2018-04-02 20:39] VITALS: BP 132/69
[2018-04-02] MEDS: MICAFUNGIN 100 MG in SODIUM CHLORIDE 0.9% 100 ML IV SCH (21:18)
[2018-04-02] MEDS: SIMETHICONE 125 MG CHEW TAB PO SCH (21:34)
[2018-04-03] MEDS: SODIUM CHLORIDE 0.9% 1,000 ML IV SCH ×3 (00:55→21:40)
[2018-04-03 02:36] VITALS: BP 117/62
[2018-04-03] MEDS: LEVOTHYROXINE 75 MCG TABLET PO SCH (06:35)
[2018-04-03] MEDS: INSULIN LISPRO 100 UNITS/ML, PEN SQ-INSULIN SCH ×4 (07:00→21:41)
[2018-04-03] MEDS: HEPARIN 5,000 UNITS/ML, 1ML SQ SCH ×2 (08:20→16:19)
[2018-04-03] MEDS: SENNA/DOCUSATE TABLET PO SCH (08:21)
[2018-04-03] MEDS: FENOFIBRATE 145 MG TABLET PO SCH (08:21)
[2018-04-03] MEDS: SIMETHICONE 125 MG CHEW TAB PO SCH ×3 (08:21→21:40)
[2018-04-03] MEDS: INSULIN GLARGINE 100 UNITS/ML, PEN SQ-INSULIN SCH (09:00)
[2018-04-03 09:57] VITALS: BP 124/68
[2018-04-03 10:06] LABS: ALBUMIN 2.8 g/dL (3.4-5.0); ANION GAP 7 mmol/L (5-15); CALCIUM 8.2 mg/dL (8.5-10.1); CHLORIDE 113 mmol/L (98-107)
[2018-04-03 10:08] LABS: CREATININE 5.05 mg/dL (0.7-1.3)
[2018-04-03 12:51] VITALS: BP 110/61
[2018-04-03] MEDS ORDERED: MIDAZOLAM 1 MG/ML, 5ML ONE ×2 (13:31→14:53)
[2018-04-03] MEDS ORDERED: FENTANYL PF 100 MCG/2ML ONE (13:31)
[2018-04-03] MEDS ORDERED: LIDOCAINE-MPF 1%, 5ML ONE (13:35)
[2018-04-03 19:48] VITALS: BP 147/78
[2018-04-03] MEDS: OXYcodone IR 5MG TABLET PO PRN (20:17)
[2018-04-03] MEDS: ACETAMINOPHEN 325 MG TABLET PO PRN (21:40)
[2018-04-04] MEDS: HEPARIN 5,000 UNITS/ML, 1ML SQ SCH ×3 (00:36→17:15)
[2018-04-04] MEDS: OXYcodone IR 5MG TABLET PO PRN (00:36)
[2018-04-04 00:39] VITALS: BP 133/70
[2018-04-04] MEDS: LEVOTHYROXINE 75 MCG TABLET PO SCH (04:21)
[2018-04-04] MEDS: SODIUM CHLORIDE 0.9% 1,000 ML IV SCH (04:21)
[2018-04-04 05:49] LABS: BASOPHILS # (AUTO) 0.04 x10^3/uL (0-0.1); BASOPHILS % (AUTO) 1 % (0-1); EOSINOPHILS % (AUTO) 4 % (1-7); LYMPHOCYTES # (AUTO) 1.47 x10^3/uL (1-3.4); LYMPHOCYTES % (AUTO) 27 % (22-44); MD NO; MEAN CORPUSCULAR HEMOGLOBIN 27.7 pg (27.5-34.5); MEAN CORPUSCULAR HGB CONC 33.1 g/dL (33.2-36.2); MEAN CORPUSCULAR VOLUME 83.7 fL (81-97); MEAN PLATELET VOLUME 7.1 fL (7.4-10.4); MONOCYTES # (AUTO) 0.84 x10^3/uL (0.2-0.8); MONOCYTES % (AUTO) 16 % (2-9); NEUTROPHILS # (AUTO) 2.85 x10^3/uL (1.8-6.8); NEUTROPHILS % (AUTO) 53 % (42-75); PLATELET COUNT 238 x10^3/uL (130-400); RED BLOOD COUNT 3.11 x10^6/uL (4.38-5.82); RED CELL DISTRIBUTION WIDTH 19.8 % (9.4-14.8)
[2018-04-04 06:12] LABS: CHLORIDE 108 mmol/L (98-107)
[2018-04-04 06:19] LABS: ALBUMIN 2.6 g/dL (3.4-5.0); ANION GAP 7 mmol/L (5-15); CALCIUM 8.1 mg/dL (8.5-10.1); CREATININE 3.68 mg/dL (0.7-1.3)
[2018-04-04] MEDS: INSULIN LISPRO 100 UNITS/ML, PEN SQ-INSULIN SCH ×4 (07:00→20:43)
[2018-04-04 07:39] VITALS: BP 120/70
[2018-04-04] MEDS: SIMETHICONE 125 MG CHEW TAB PO SCH ×3 (09:02→20:43)
[2018-04-04] MEDS: FENOFIBRATE 145 MG TABLET PO SCH (09:02)
[2018-04-04] MEDS: SENNA/DOCUSATE TABLET PO SCH (09:02)
[2018-04-04 13:37] VITALS: BP 116/66
[2018-04-04] MEDS: ONDANSETRON 2MG/ML, 2ML IVPush PRN (16:41)
[2018-04-04 18:47] VITALS: BP 132/68
[2018-04-05] MEDS: HEPARIN 5,000 UNITS/ML, 1ML SQ SCH ×3 (02:09→18:35)
[2018-04-05 02:10] VITALS: BP 126/76
[2018-04-05] MEDS: LEVOTHYROXINE 75 MCG TABLET PO SCH (05:05)
[2018-04-05] MEDS: ONDANSETRON 2MG/ML, 2ML IVPush PRN ×2 (05:09→21:40)
[2018-04-05] MEDS: INSULIN LISPRO 100 UNITS/ML, PEN SQ-INSULIN SCH ×4 (06:29→21:41)
[2018-04-05 07:20] VITALS: BP 112/63
[2018-04-05] MEDS: SENNA/DOCUSATE TABLET PO SCH (09:11)
[2018-04-05] MEDS: FENOFIBRATE 145 MG TABLET PO SCH (09:11)
[2018-04-05] MEDS: SIMETHICONE 125 MG CHEW TAB PO SCH ×3 (09:12→21:40)
[2018-04-05 13:12] VITALS: BP 119/63
[2018-04-05] MEDS: GLIMEPIRIDE 1 MG TABLET PO SCH (18:34)
[2018-04-05 19:09] VITALS: BP 136/68
[2018-04-06] MEDS: HEPARIN 5,000 UNITS/ML, 1ML SQ SCH ×3 (02:01→17:00)
[2018-04-06 03:06] VITALS: BP 129/72
[2018-04-06 05:52] LABS: CHLORIDE 103 mmol/L (98-107)
[2018-04-06 06:03] LABS: ANION GAP 10 mmol/L (5-15); CALCIUM 8.7 mg/dL (8.5-10.1); CREATININE 3.83 mg/dL (0.7-1.3)
[2018-04-06] MEDS: LEVOTHYROXINE 75 MCG TABLET PO SCH (06:29)
[2018-04-06] MEDS: INSULIN LISPRO 100 UNITS/ML, PEN SQ-INSULIN SCH ×4 (06:33→23:30)
[2018-04-06 06:48] VITALS: BP 151/78
[2018-04-06] MEDS: FENOFIBRATE 145 MG TABLET PO SCH (10:10)
[2018-04-06] MEDS: SIMETHICONE 125 MG CHEW TAB PO SCH ×3 (10:11→21:25)
[2018-04-06] MEDS: GLIMEPIRIDE 1 MG TABLET PO SCH (10:11)
[2018-04-06] MEDS: SENNA/DOCUSATE TABLET PO SCH (10:12)
[2018-04-06 13:13] VITALS: BP 128/74
[2018-04-06 19:30] VITALS: BP 136/79
[2018-04-07 01:19] VITALS: BP 122/69
[2018-04-07] MEDS: HEPARIN 5,000 UNITS/ML, 1ML SQ SCH ×3 (01:43→17:32)
[2018-04-07 06:15] VITALS: BP 129/75
[2018-04-07] MEDS: LEVOTHYROXINE 75 MCG TABLET PO SCH (06:21)
[2018-04-07] MEDS: ONDANSETRON 2MG/ML, 2ML IVPush PRN (06:21)
[2018-04-07] MEDS: INSULIN LISPRO 100 UNITS/ML, PEN SQ-INSULIN SCH ×2 (06:29→11:43)
[2018-04-07] MEDS: SENNA/DOCUSATE TABLET PO SCH (09:24)
[2018-04-07] MEDS: FENOFIBRATE 145 MG TABLET PO SCH (09:24)
[2018-04-07] MEDS: GLIMEPIRIDE 1 MG TABLET PO SCH ×3 (09:24→19:41)
[2018-04-07] MEDS: OXYcodone IR 5MG TABLET PO PRN ×2 (09:24→17:32)
[2018-04-07] MEDS: SIMETHICONE 125 MG CHEW TAB PO SCH ×3 (09:25→22:00)
[2018-04-07 13:09] VITALS: BP 122/78
[2018-04-07 19:00] VITALS: BP 130/74
[2018-04-07] MEDS ORDERED: GLIMEPIRIDE 1 MG TABLET PO SCH (21:00)
[2018-04-07] MEDS ORDERED: INSULIN LISPRO 100 UNITS/ML, PEN SQ-INSULIN ONE (23:00)
[2018-04-08 01:32] VITALS: BP 133/63
[2018-04-08] MEDS: HEPARIN 5,000 UNITS/ML, 1ML SQ SCH ×3 (02:07→17:25)
[2018-04-08] MEDS: LEVOTHYROXINE 75 MCG TABLET PO SCH (06:29)
[2018-04-08 06:42] VITALS: BP 149/81
[2018-04-08] MEDS: FENOFIBRATE 145 MG TABLET PO SCH (09:30)
[2018-04-08] MEDS: GLIMEPIRIDE 1 MG TABLET PO SCH (09:30)
[2018-04-08] MEDS: SENNA/DOCUSATE TABLET PO SCH (09:30)
[2018-04-08] MEDS: SIMETHICONE 125 MG CHEW TAB PO SCH ×3 (09:30→20:53)
[2018-04-08] MEDS: OXYcodone IR 5MG TABLET PO PRN ×2 (12:11→18:34)
[2018-04-08] MEDS ORDERED: GLIMEPIRIDE 1 MG TABLET PO ONE (12:30)
[2018-04-08 15:57] VITALS: BP 120/64
[2018-04-08] MEDS ORDERED: INSULIN LISPRO 100 UNITS/ML, PEN SQ-INSULIN ONE (17:30)
[2018-04-08 19:21] VITALS: BP 129/75
[2018-04-08] MEDS: GLIMEPIRIDE 4 MG TABLET PO SCH (20:53)
[2018-04-08] MEDS: ERGOCALCIFEROL 50,000 UNIT CAPSULE PO SCH (20:53)
[2018-04-08] MEDS: INSULIN LISPRO 100 UNITS/ML, PEN SQ-INSULIN SCH (21:27)
[2018-04-09 00:09] VITALS: BP 125/61
[2018-04-09] MEDS: HEPARIN 5,000 UNITS/ML, 1ML SQ SCH ×3 (00:25→16:38)
[2018-04-09 06:03] LABS: ALBUMIN 2.7 g/dL (3.4-5.0); ANION GAP 9 mmol/L (5-15); CALCIUM 9.5 mg/dL (8.5-10.1); CHLORIDE 100 mmol/L (98-107)
[2018-04-09] MEDS: LEVOTHYROXINE 75 MCG TABLET PO SCH (06:03)
[2018-04-09 06:05] LABS: BASOPHILS # (AUTO) 0.06 x10^3/uL (0-0.1); BASOPHILS % (AUTO) 1 % (0-1); CREATININE 4.75 mg/dL (0.7-1.3); EOSINOPHILS # (AUTO) 0.32 x10^3/uL (0-0.4); EOSINOPHILS % (AUTO) 5 % (1-7); LYMPHOCYTES # (AUTO) 1.68 x10^3/uL (1-3.4); LYMPHOCYTES % (AUTO) 28 % (22-44); MD NO; MEAN CORPUSCULAR HEMOGLOBIN 27.4 pg (27.5-34.5); MEAN CORPUSCULAR HGB CONC 32.9 g/dL (33.2-36.2); MEAN CORPUSCULAR VOLUME 83.3 fL (81-97); MEAN PLATELET VOLUME 7.9 fL (7.4-10.4); MONOCYTES # (AUTO) 0.66 x10^3/uL (0.2-0.8); MONOCYTES % (AUTO) 11 % (2-9); NEUTROPHILS # (AUTO) 3.26 x10^3/uL (1.8-6.8); NEUTROPHILS % (AUTO) 54 % (42-75); PLATELET COUNT 300 x10^3/uL (130-400); RED BLOOD COUNT 3.27 x10^6/uL (4.38-5.82)
[2018-04-09 07:31] VITALS: BP 138/76
[2018-04-09] MEDS: INSULIN LISPRO 100 UNITS/ML, PEN SQ-INSULIN SCH ×3 (07:52→16:35)
[2018-04-09] MEDS: ONDANSETRON 2MG/ML, 2ML IVPush PRN (07:56)
[2018-04-09] MEDS: SIMETHICONE 125 MG CHEW TAB PO SCH ×2 (08:48→16:37)
[2018-04-09] MEDS: GLIMEPIRIDE 4 MG TABLET PO SCH (08:48)
[2018-04-09] MEDS: SENNA/DOCUSATE TABLET PO SCH (08:48)
[2018-04-09] MEDS: FENOFIBRATE 145 MG TABLET PO SCH (08:48)
[2018-04-09] MEDS ORDERED: FLUC200T PO (10:52)
[2018-04-09] MEDS ORDERED: POLY17PO5 PO (10:52)
[2018-04-09 13:00] VITALS: BP 110/64
[2018-04-09] MEDS ORDERED: CATHFLO-ALTEPLASE 2 MG/2 ML CATHFLUSH ONE (16:30)
[2018-04-09 19:10] VITALS: BP 125/55
== END 2018-04-09 19:26 | disposition home or self-care (01) | DRG 698 ==
LOC: ED 17:08 → EDIP 19:40 → 4NOR 20:56
PROVIDERS: ADMIT Hospitalist; ATTEND Hospitalist
PROC: 0T9B70Z Drainage of Bladder with Drainage Device, Via Natural or Artificial Opening (ICD-10-PCS; 2018-04-01)
PROC: 0JH63XZ Insertion of Tunneled Vascular Access Device into Chest Subcutaneous Tissue and Fascia, Percutaneous Approach (ICD-10-PCS; principal; 2018-04-03)
PROC: 02HV33Z Insertion of Infusion Device into Superior Vena Cava, Percutaneous Approach (ICD-10-PCS; 2018-04-03)
PROC: B5181ZA Fluoroscopy of Superior Vena Cava using Low Osmolar Contrast, Guidance (ICD-10-PCS; 2018-04-03)
PROC: B548ZZA Ultrasonography of Superior Vena Cava, Guidance (ICD-10-PCS; 2018-04-03)
PROC: 5A1D70Z Performance of Urinary Filtration, Intermittent, Less than 6 Hours Per Day (ICD-10-PCS; 2018-04-03)
PROC: 5A1D70Z Performance of Urinary Filtration, Intermittent, Less than 6 Hours Per Day (ICD-10-PCS; 2018-04-04)
PROC: 5A1D70Z Performance of Urinary Filtration, Intermittent, Less than 6 Hours Per Day (ICD-10-PCS; 2018-04-06)
PROC: 5A1D70Z Performance of Urinary Filtration, Intermittent, Less than 6 Hours Per Day (ICD-10-PCS; 2018-04-09)
DX: T83.518A Infection and inflammatory reaction due to other urinary catheter, initial encounter (principal); A41.9 Sepsis, unspecified organism; B48.8 Other specified mycoses; N13.6 Pyonephrosis; N18.5 Chronic kidney disease, stage 5; I12.0 Hypertensive chronic kidney disease with stage 5 chronic kidney disease or end stage renal disease; N17.9 Acute kidney failure, unspecified; E11.22 Type 2 diabetes mellitus with diabetic chronic kidney disease; Z79.4 Long term (current) use of insulin; G51.0 Bell's palsy; B37.9 Candidiasis, unspecified; D63.1 Anemia in chronic kidney disease; E03.9 Hypothyroidism, unspecified; E55.9 Vitamin D deficiency, unspecified; E78.00 Pure hypercholesterolemia, unspecified; E78.5 Hyperlipidemia, unspecified; Y84.6 Urinary catheterization as the cause of abnormal reaction of the patient, or of later complication, without mention of misadventure at the time of the procedure; Z80.42 Family history of malignant neoplasm of prostate; Z86.73 Personal history of transient ischemic attack (TIA), and cerebral infarction without residual deficits; Y92.89 Other specified places as the place of occurrence of the external cause
CPT/HCPCS: 36415; 36565; 74176; 76937; 77001; 80048; 80053; 80069; 81001; 82040; 82436; 82570; 82962; 83036; 83735; 84133; 84300; 85025; 86480; 86704; 86706; 86803; 87086; 87106; 87340; 96365; 99156; 99157; 99285; C1894; G0378; J0696; J1644; J2248; J2250; J2405; J3010; C1750; G0365; J1642; J1815; J7030

== ENCOUNTER 2018-04-11 15:33 | Emergency (ER) | payer MEDICARE ==
[~2018-04-11] VITALS: Ht 170.2 cm; Wt 80.0 kg
[~2018-04-11 15:33] MED LIST changes: +FLUC200T PO; +POLY17PO5 PO
[2018-04-11 15:35] VITALS: BP 118/71
--- NOTE | 2018-04-11 16:35 | NUR ---
4N SENDING A STOPPED FOR 3 WAY HANCOCK
--- NOTE | 2018-04-11 17:11 | NUR ---
HANCOCK BAG & VALVE CHANGED, LEAKING STOPPED, PT GIVEN EXTRA HANCOCK LEG BAG & 2 VALVES FOR HOME
== END 2018-04-11 17:13 | disposition home or self-care (01) ==
LOC: ED 15:47
DX: T83.038A Leakage of other urinary catheter, initial encounter (principal); E03.9 Hypothyroidism, unspecified; E78.00 Pure hypercholesterolemia, unspecified; E11.9 Type 2 diabetes mellitus without complications
CPT/HCPCS: 99283

== ENCOUNTER 2018-04-18 14:48 | Emergency (ER) | payer MEDICARE ==
[~2018-04-18] VITALS: Ht 170.2 cm; Wt 79.3 kg
[2018-04-18 15:16] LABS: BASOPHILS # (AUTO) 0.11 x10^3/uL (0-0.1); BASOPHILS % (AUTO) 1 % (0-1); EOSINOPHILS # (AUTO) 0.26 x10^3/uL (0-0.4); EOSINOPHILS % (AUTO) 3 % (1-7); LYMPHOCYTES # (AUTO) 2.49 x10^3/uL (1-3.4); LYMPHOCYTES % (AUTO) 30 % (22-44); MD NO; MEAN CORPUSCULAR HEMOGLOBIN 27.4 pg (27.5-34.5); MEAN CORPUSCULAR HGB CONC 32.7 g/dL (33.2-36.2); MEAN CORPUSCULAR VOLUME 83.8 fL (81-97); MONOCYTES # (AUTO) 0.53 x10^3/uL (0.2-0.8); MONOCYTES % (AUTO) 6 % (2-9); NEUTROPHILS # (AUTO) 4.93 x10^3/uL (1.8-6.8); NEUTROPHILS % (AUTO) 59 % (42-75); PLATELET COUNT 392 x10^3/uL (130-400); RED BLOOD COUNT 3.94 x10^6/uL (4.38-5.82)
[2018-04-18 15:29] LABS: ALANINE AMINOTRANSFERASE 19 U/L (12-78); ALBUMIN 3.6 g/dL (3.4-5.0); ANION GAP 9 mmol/L (5-15); CALCIUM 9.7 mg/dL (8.5-10.1); CHLORIDE 98 mmol/L (98-107); CREATININE 1.84 mg/dL (0.7-1.3)
[2018-04-18 15:32] LABS: ALKALINE PHOSPHATASE 67 U/L (45-117); BILIRUBIN,TOTAL 0.3 mg/dL (0.2-1.0); TOTAL PROTEIN 8.8 g/dL (6.4-8.2)
--- NOTE | 2018-04-18 16:00 | NUR ---
1600 - PT HAS LEAKING FROM HANCOCK CATH WHICH WAS PLACED IN FEBRUARY AFTER L KIDNEY REMOVAL. PT REQUESTS TO HAVE CATHETER DC'D. ERP WAS AT BS. POC RV'WD WITH PT AND .
[2018-04-18 16:02] LABS: MICROSCOPIC AUTO
[2018-04-18 16:07] LABS: CULTURE INDICATED? YES
[2018-04-18] MEDS ORDERED: CEFDINIR 300 MG CAPSULE ONE (16:19)
[2018-04-18 16:26] VITALS: BP 139/71
[2018-04-18] MEDS ORDERED: CEFDINIR 300 MG CAPSULE PO ONE (16:30)
--- NOTE | 2018-04-18 17:09 | NUR ---
Patient/Caregiver given discharge instructions and they have confirmed that they understand the instructions. Patient ambulatory with steady gait.
== END 2018-04-18 17:10 | disposition home or self-care (01) ==
LOC: ED 15:49
DX: N39.0 Urinary tract infection, site not specified (principal); E78.00 Pure hypercholesterolemia, unspecified; E03.9 Hypothyroidism, unspecified; E11.22 Type 2 diabetes mellitus with diabetic chronic kidney disease; N18.6 End stage renal disease; Z99.2 Dependence on renal dialysis; Z90.5 Acquired absence of kidney; Z86.73 Personal history of transient ischemic attack (TIA), and cerebral infarction without residual deficits
CPT/HCPCS: 36415; 80053; 81001; 85025; 87086; 99283

== ENCOUNTER 2018-05-09 07:23 | Emergency (ER) | payer MEDICARE ==
[~2018-05-09] VITALS: Ht 170.2 cm; Wt 80.1 kg
--- NOTE | 2018-05-09 07:37 | NUR ---
patient ambulated to room with spouse, changing to gown now, MD Hess has been to bedside at this time, has ordered bladder scan and harvey placement if >200 mL noted on scan.
[2018-05-09 07:53] LABS: BASOPHILS # (AUTO) 0.04 x10^3/uL (0-0.1); BASOPHILS % (AUTO) 1 % (0-1); EOSINOPHILS # (AUTO) 0.17 x10^3/uL (0-0.4); EOSINOPHILS % (AUTO) 2 % (1-7); LYMPHOCYTES # (AUTO) 1.27 x10^3/uL (1-3.4); LYMPHOCYTES % (AUTO) 16 % (22-44); MD NO; MEAN CORPUSCULAR HEMOGLOBIN 28.2 pg (27.5-34.5); MEAN CORPUSCULAR HGB CONC 32.3 g/dL (33.2-36.2); MEAN CORPUSCULAR VOLUME 87.2 fL (81-97); MEAN PLATELET VOLUME 7.1 fL (7.4-10.4); MONOCYTES # (AUTO) 0.87 x10^3/uL (0.2-0.8); MONOCYTES % (AUTO) 11 % (2-9); NEUTROPHILS # (AUTO) 5.44 x10^3/uL (1.8-6.8); NEUTROPHILS % (AUTO) 70 % (42-75); PLATELET COUNT 294 x10^3/uL (130-400); RED BLOOD COUNT 3.95 x10^6/uL (4.38-5.82); RED CELL DISTRIBUTION WIDTH 20.3 % (9.4-14.8)
[2018-05-09 08:05] LABS: ALBUMIN 3.4 g/dL (3.4-5.0); ANION GAP 10 mmol/L (5-15); CALCIUM 9.3 mg/dL (8.5-10.1); CHLORIDE 100 mmol/L (98-107); CREATININE 5.71 mg/dL (0.7-1.3)
--- NOTE | 2018-05-09 08:18 | NUR ---
0mL on bladder scan by this RN, patient produced a scant clear yellow urine sample, walked to lab by this RN, 10/03 abd pain remains, MD updated, call light in reach, blanket provided, no other needs at this time.
[2018-05-09 08:31] LABS: CULTURE INDICATED? YES; MICROSCOPIC INDICATED
[2018-05-09 08:43] VITALS: BP 132/70
== END 2018-05-09 09:48 | disposition home or self-care (01) ==
LOC: ED 09:35
DX: R10.2 Pelvic and perineal pain (principal); R31.29 Other microscopic hematuria; E11.22 Type 2 diabetes mellitus with diabetic chronic kidney disease; N18.9 Chronic kidney disease, unspecified; E78.00 Pure hypercholesterolemia, unspecified; E03.9 Hypothyroidism, unspecified; Z86.73 Personal history of transient ischemic attack (TIA), and cerebral infarction without residual deficits; Z93.6 Other artificial openings of urinary tract status
CPT/HCPCS: 36415; 80048; 81001; 82040; 85025; 87086; 99283

== ENCOUNTER 2018-06-25 06:59 | Day surgery (SDC) | payer MEDICARE ==
[~2018-06-25] VITALS: Ht 170.2 cm; Wt 79.0 kg
[2018-06-25] MEDS ORDERED: SODIUM CHLORIDE 0.9% 1,000 ML IV SCH (08:01)
[2018-06-25] MEDS ORDERED: INSU100V13 SQ (08:04)
[2018-06-25 08:24] VITALS: BP 121/74
[2018-06-25] MEDS ORDERED: LIDOCAINE-MPF 1%, 2ML INFIL ONE (08:30)
[2018-06-25] MEDS ORDERED: FENTANYL PF 100 MCG/2ML ONE (08:47)
[2018-06-25] MEDS ORDERED: MIDAZOLAM 1 MG/ML, 2ML ONE (08:47)
[2018-06-25] MEDS ORDERED: THROMBIN 20,000 UNIT VIAL TP ONE (09:19)
[2018-06-25] MEDS ORDERED: PROTAMINE SULFATE 10 MG/ML, 5ML ONE (09:19)
[2018-06-25] MEDS ORDERED: HEPARIN 1,000 UNITS/ML, 10ML ONE (09:19)
[2018-06-25] MEDS ORDERED: BUPIVACAINE/PF 0.5% ONE (09:19)
[2018-06-25] MEDS ORDERED: HEPARIN 1,000 UNITS/ML, 10ML IV ONE (09:47)
[2018-06-25] MEDS ORDERED: OXYcodone 5 MG/5 ML ORAL.SOL UDC ONE (10:29)
[2018-06-25] MEDS ORDERED: HYDROmorphone 1 MG/ML, 1ML AMP IV PRN (10:30)
[2018-06-25] MEDS ORDERED: LABETALOL 5MG/ML, 20ML IV PRN (10:30)
[2018-06-25] MEDS ORDERED: MEPERIDINE/PF 25MG/0.5ML IVPush PRN (10:30)
[2018-06-25] MEDS ORDERED: KETOROLAC 30 MG/1 ML IV PRN (10:30)
[2018-06-25] MEDS ORDERED: ALBUTEROL SULFATE 2.5 MG/3 ML NPPB PRN (10:30)
[2018-06-25] MEDS ORDERED: OXYcodone 5 MG/5 ML ORAL.SOL UDC PO PRN (10:30)
[2018-06-25] MEDS ORDERED: ONDANSETRON 2MG/ML, 2ML IVPush PRN (10:30)
[2018-06-25] MEDS ORDERED: FENTANYL PF 100 MCG/2ML IV PRN (10:30)
[2018-06-25] MEDS ORDERED: PROMETHAZINE 25 MG/ML, 1ML IV PRN (10:30)
[2018-06-25] MEDS ORDERED: hydrALAzine 20 MG/ML, 1ML IV PRN (10:30)
[2018-06-25] MEDS ORDERED: PROPOFOL 10 MG/ML, 20ML ONE (16:18)
[2018-06-25] MEDS ORDERED: ONDANSETRON 2MG/ML, 2ML ONE (16:18)
[2018-06-25] MEDS ORDERED: SUCCINYLCHOLINE 20 MG/ML, 10ML ONE (16:18)
[2018-06-25] MEDS ORDERED: CEFAZOLIN 1,000 MG ONE (16:18)
[2018-06-25] MEDS ORDERED: METOCLOPRAMIDE 5 MG/ML, 2ML IV PRN (19:00)
== END 2018-06-25 12:40 | disposition home or self-care (01) ==
LOC: OUT 06:59
PROVIDERS: ATTEND Surgery Vascular Surgery
DX: I12.0 Hypertensive chronic kidney disease with stage 5 chronic kidney disease or end stage renal disease (principal); E11.22 Type 2 diabetes mellitus with diabetic chronic kidney disease; N18.6 End stage renal disease
CPT/HCPCS: 36415; 36821; 80047; 82962; 93005; J0330; J0690; J1644; J2250; J2405; J2704; J2720; J3010; J7030; J3490

== ENCOUNTER 2018-10-17 07:26 | Day surgery (SDC) | payer MEDICARE ==
[~2018-10-17] VITALS: Ht 170.2 cm; Wt 78.8 kg
[2018-10-17 08:16] VITALS: BP 112/70
== END 2018-10-17 11:35 | disposition home or self-care (01) ==
LOC: OUT 07:26 → EDSTATUS 09:30 → OUT 11:35
PROVIDERS: ATTEND Internal Medicine Nephrology
DX: Z45.2 Encounter for adjustment and management of vascular access device (principal); E11.22 Type 2 diabetes mellitus with diabetic chronic kidney disease; N18.6 End stage renal disease; Z79.84 Long term (current) use of oral hypoglycemic drugs; Z79.899 Other long term (current) drug therapy; Z87.891 Personal history of nicotine dependence
CPT/HCPCS: 36589; 77001; 82962; 99156; 99157; J2250; J3010; J2310

== ENCOUNTER 2019-02-12 12:26 | Inpatient (IN) | payer MEDICARE ==
[~2019-02-12] VITALS: Ht 170.2 cm; Wt 77.2 kg
[~2019-02-12 12:26] MED LIST changes: +INSU100V13 SQ
[2019-02-12 13:29] LABS: BASOPHILS # (AUTO) 0.04 x10^3/uL (0-0.1); BASOPHILS % (AUTO) 1 % (0-1); EOSINOPHILS % (AUTO) 1 % (1-7); LYMPHOCYTES # (AUTO) 1.24 x10^3/uL (1-3.4); LYMPHOCYTES % (AUTO) 16 % (22-44); MD NO; MEAN CORPUSCULAR HEMOGLOBIN 29.1 pg (27.5-34.5); MEAN CORPUSCULAR HGB CONC 34.4 g/dL (33.2-36.2); MEAN CORPUSCULAR VOLUME 84.6 fL (81-97); MEAN PLATELET VOLUME 7.4 fL (7.4-10.4); MONOCYTES # (AUTO) 0.68 x10^3/uL (0.2-0.8); MONOCYTES % (AUTO) 9 % (2-9); NEUTROPHILS # (AUTO) 5.64 x10^3/uL (1.8-6.8); NEUTROPHILS % (AUTO) 73 % (42-75); PLATELET COUNT 335 x10^3/uL (130-400); RED BLOOD COUNT 3.91 x10^6/uL (4.38-5.82); RED CELL DISTRIBUTION WIDTH 14.9 % (9.4-14.8)
--- NOTE | 2019-02-12 13:30 | NUR ---
medical economics consultant: pt to ED room 17 from jacqui
--- NOTE | 2019-02-12 13:38 | NUR ---
task RN note: pt instructed to provide clean catch ua, supplies provided at bedside.
[2019-02-12 13:42] LABS: ALBUMIN 3.1 g/dL (3.4-5.0); ANION GAP 16 mmol/L (5-15); CALCIUM 9.5 mg/dL (8.5-10.1); CHLORIDE 92 mmol/L (98-107); CREATININE 9.37 mg/dL (0.7-1.3)
--- NOTE | 2019-02-12 13:47 | NUR ---
PT PRESENTS TO ED WITH C/O DYSURIA FOR LAST SEVERAL DAYS, WITH MILKY WHITE URINE STARTING THIS AM. 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 NO ERYTHEMA OR DRAINAGE TO SURROUNDING SKIN. RIGHT UE AV FISTULA IN PLACE, BRUIT AND THRILL PRESENT. PT A&O, RESPS EVEN AND UNLABORED, NADN. AWAITING URINE FOR UA AT THIS TIME. CALL LIGHT IN REACH. AT BEDSIDE.
--- NOTE | 2019-02-12 14:08 | NUR ---
REPORT GIVEN TO PRIMARY RN'S PERI.
[2019-02-12] MEDS ORDERED: CEFTRIAXONE PMX 1GM/50ML 50 ML IV ONE (14:30)
[2019-02-12 14:47] LABS: CULTURE INDICATED? YES; MICROSCOPIC INDICATED
[2019-02-12] MEDS ORDERED: CEFTRIAXONE PMX 1GM/50ML 50 ML ONE (15:20)
--- NOTE | 2019-02-12 15:24 | NUR ---
REPORT GIVE TO VIOLETA.
--- NOTE | 2019-02-12 15:24 | NUR ---
PIV STARTED, CULTURES DRAWN. ABX STARTED PER EMAR. PATIENT AWAITING TRANSPORT.
[2019-02-12] MEDS ORDERED: LABETALOL 5MG/ML, 20ML IVPush PRN (15:30)
[2019-02-12] MEDS ORDERED: POLYETHYLENE GLYCOL 17 GM PACKET PO PRN (15:30)
[2019-02-12] MEDS ORDERED: METOCLOPRAMIDE 5 MG/ML, 2ML IVPush PRN (15:30)
[2019-02-12] MEDS ORDERED: hydrALAzine 20 MG/ML, 1ML IVPush PRN (15:30)
[2019-02-12] MEDS ORDERED: DOCUSATE 100 MG CAPSULE PO PRN (15:30)
[2019-02-12] MEDS: CEFTRIAXONE PMX 1GM/50ML 50 ML IV SCH (15:30)
[2019-02-12] MEDS: INSULIN REGULAR 100 UNITS/ML, 3ML VIAL SQ-INSULIN SCH ×2 (16:00→21:02)
[2019-02-12 16:21] VITALS: BP 120/50
[2019-02-12 20:03] VITALS: BP 121/58
[2019-02-12] MEDS: MICAFUNGIN 100 MG in SODIUM CHLORIDE 0.9% 100 ML IV SCH (20:21)
[2019-02-12] MEDS: HEPARIN 5,000 UNITS/ML, 1ML SQ SCH (20:22)
[2019-02-12] MEDS: INSULIN GLARGINE 100 UNITS/ML, PEN SQ-INSULIN SCH (21:01)
[2019-02-12] MEDS: ERGOCALCIFEROL 50,000 UNIT CAPSULE PO SCH (21:02)
[2019-02-12] MEDS: ACETAMINOPHEN 325 MG TABLET PO PRN (21:03)
[2019-02-12 21:42] LABS: CELLS COUNTED 30
[2019-02-12] MEDS: METHOCARBAMOL 750 MG TABLET PO PRN (22:49)
[2019-02-13 01:40] VITALS: BP 128/62
[2019-02-13] MEDS: ONDANSETRON 2MG/ML, 2ML IVPush PRN (02:59)
[2019-02-13] MEDS: CEFTRIAXONE PMX 1GM/50ML 50 ML IV SCH (03:09)
[2019-02-13] MEDS: METHOCARBAMOL 750 MG TABLET PO PRN (03:11)
[2019-02-13] MEDS: ACETAMINOPHEN 325 MG TABLET PO PRN ×2 (03:11→10:10)
[2019-02-13] MEDS: HEPARIN 5,000 UNITS/ML, 1ML SQ SCH ×3 (03:11→20:50)
[2019-02-13] MEDS: LEVOTHYROXINE 75 MCG TABLET PO SCH (05:00)
[2019-02-13 06:00] LABS: BASOPHILS # (AUTO) 0.05 x10^3/uL (0-0.1); BASOPHILS % (AUTO) 1 % (0-1); EOSINOPHILS # (AUTO) 0.11 x10^3/uL (0-0.4); EOSINOPHILS % (AUTO) 1 % (1-7); LYMPHOCYTES # (AUTO) 0.95 x10^3/uL (1-3.4); LYMPHOCYTES % (AUTO) 12 % (22-44); MD NO; MEAN CORPUSCULAR HEMOGLOBIN 28.2 pg (27.5-34.5); MEAN CORPUSCULAR HGB CONC 32.9 g/dL (33.2-36.2); MEAN CORPUSCULAR VOLUME 85.5 fL (81-97); MEAN PLATELET VOLUME 7.4 fL (7.4-10.4); MONOCYTES # (AUTO) 0.88 x10^3/uL (0.2-0.8); MONOCYTES % (AUTO) 11 % (2-9); NEUTROPHILS # (AUTO) 6.07 x10^3/uL (1.8-6.8); NEUTROPHILS % (AUTO) 75 % (42-75); PLATELET COUNT 326 x10^3/uL (130-400); RED BLOOD COUNT 3.66 x10^6/uL (4.38-5.82)
[2019-02-13 06:06] LABS: ALBUMIN 2.7 g/dL (3.4-5.0); ANION GAP 16 mmol/L (5-15); CALCIUM 9.1 mg/dL (8.5-10.1); CHLORIDE 95 mmol/L (98-107)
[2019-02-13 06:16] LABS: ALANINE AMINOTRANSFERASE 10 U/L (12-78); TOTAL PROTEIN 8.1 g/dL (6.4-8.2)
[2019-02-13 06:17] LABS: % IRON SATURATION 13 % (20-55); ALKALINE PHOSPHATASE 64 U/L (45-117); BILIRUBIN,TOTAL 0.5 mg/dL (0.2-1.0); CREATININE 8.82 mg/dL (0.7-1.3); IRON LEVEL 46 mcg/dL (65-175); TOTAL IRON BINDING CAPACITY 341 mcg/dL (250-450)
[2019-02-13 07:17] VITALS: BP 97/34
[2019-02-13] MEDS ORDERED: MICAFUNGIN 100 MG IV SCH (09:00)
[2019-02-13] MEDS: INSULIN REGULAR 100 UNITS/ML, 3ML VIAL SQ-INSULIN SCH ×4 (09:37→20:51)
[2019-02-13] MEDS: PIPERACILLIN/TAZO/PMX 2.25GM 50 ML IV SCH ×2 (09:37→22:14)
[2019-02-13] MEDS: INSULIN GLARGINE 100 UNITS/ML, PEN SQ-INSULIN SCH ×2 (09:38→20:51)
[2019-02-13 12:35] VITALS: BP 114/66
[2019-02-13] MEDS ORDERED: GENTAMICIN CRM 0.1%, 30GM TP PRN (18:00)
[2019-02-13 20:16] VITALS: BP 121/69
[2019-02-13] MEDS: MICAFUNGIN 100 MG in SODIUM CHLORIDE 0.9% 100 ML IV SCH (20:50)
[2019-02-13] MEDS ORDERED: METOCLOPRAMIDE 5 MG/ML, 2ML ONE (21:00)
[2019-02-13] MEDS: METOCLOPRAMIDE 5 MG/ML, 2ML IVPush PRN (21:05)
[2019-02-14 00:55] VITALS: BP 100/69
[2019-02-14] MEDS: ONDANSETRON 2MG/ML, 2ML IVPush PRN ×2 (01:07→19:27)
[2019-02-14 05:01] LABS: BASOPHILS # (AUTO) 0.05 x10^3/uL (0-0.1); BASOPHILS % (AUTO) 1 % (0-1); EOSINOPHILS # (AUTO) 0.11 x10^3/uL (0-0.4); EOSINOPHILS % (AUTO) 1 % (1-7); LYMPHOCYTES % (AUTO) 10 % (22-44); MD NO; MEAN CORPUSCULAR HEMOGLOBIN 28.2 pg (27.5-34.5); MEAN CORPUSCULAR HGB CONC 33.1 g/dL (33.2-36.2); MEAN PLATELET VOLUME 7.5 fL (7.4-10.4); MONOCYTES # (AUTO) 0.75 x10^3/uL (0.2-0.8); MONOCYTES % (AUTO) 9 % (2-9); NEUTROPHILS # (AUTO) 6.34 x10^3/uL (1.8-6.8); NEUTROPHILS % (AUTO) 79 % (42-75); PLATELET COUNT 311 x10^3/uL (130-400); RED BLOOD COUNT 3.71 x10^6/uL (4.38-5.82)
[2019-02-14 05:06] LABS: ALBUMIN 2.6 g/dL (3.4-5.0); ANION GAP 13 mmol/L (5-15); CALCIUM 8.7 mg/dL (8.5-10.1); CHLORIDE 96 mmol/L (98-107); CREATININE 8.94 mg/dL (0.7-1.3)
[2019-02-14] MEDS: LEVOTHYROXINE 75 MCG TABLET PO SCH (05:49)
[2019-02-14] MEDS: HEPARIN 5,000 UNITS/ML, 1ML SQ SCH ×3 (05:49→20:03)
[2019-02-14] MEDS: INSULIN REGULAR 100 UNITS/ML, 3ML VIAL SQ-INSULIN SCH ×4 (07:00→20:09)
[2019-02-14] MEDS: METOCLOPRAMIDE 5 MG/ML, 2ML IVPush PRN (07:56)
[2019-02-14] MEDS: INSULIN GLARGINE 100 UNITS/ML, PEN SQ-INSULIN SCH ×2 (09:29→21:00)
[2019-02-14 09:51] VITALS: BP 141/80
[2019-02-14] MEDS: PIPERACILLIN/TAZO/PMX 2.25GM 50 ML IV SCH ×2 (09:53→21:56)
[2019-02-14] MEDS ORDERED: NALOXONE 1 MG/ML, 2ML ONE (14:00)
[2019-02-14] MEDS ORDERED: FLUMAZENIL 0.1 MG/1 ML, 5ML ONE (14:00)
[2019-02-14] MEDS ORDERED: MIDAZOLAM 1 MG/ML, 5ML ONE (14:00)
[2019-02-14] MEDS ORDERED: FENTANYL PF 100 MCG/2ML ONE (14:00)
[2019-02-14] MEDS ORDERED: LIDOCAINE 1%, 20ML ONE (14:14)
[2019-02-14 15:45] VITALS: BP 95/65
[2019-02-14 19:35] VITALS: BP 117/64
[2019-02-14] MEDS: MICAFUNGIN 100 MG in SODIUM CHLORIDE 0.9% 100 ML IV SCH (20:03)
[2019-02-14] MEDS: ACETAMINOPHEN 325 MG TABLET PO PRN (22:37)
[2019-02-15 00:18] VITALS: BP 109/57
[2019-02-15] MEDS: METOCLOPRAMIDE 5 MG/ML, 2ML IVPush PRN (00:30)
[2019-02-15] MEDS: METHOCARBAMOL 750 MG TABLET PO PRN ×2 (00:49→06:30)
[2019-02-15] MEDS: ONDANSETRON 2MG/ML, 2ML IVPush PRN (01:51)
[2019-02-15] MEDS ORDERED: DEXTROSE 4 GM TAB.CHEW PO PRN (02:30)
[2019-02-15] MEDS ORDERED: GLUCAGON 1 MG IM PRN (02:30)
[2019-02-15] MEDS ORDERED: DEXTROSE 50%, 50ML SYRINGE IVPush PRN (02:30)
[2019-02-15 05:10] LABS: BASOPHILS # (AUTO) 0.04 x10^3/uL (0-0.1); BASOPHILS % (AUTO) 1 % (0-1); EOSINOPHILS # (AUTO) 0.09 x10^3/uL (0-0.4); EOSINOPHILS % (AUTO) 1 % (1-7); LYMPHOCYTES # (AUTO) 0.74 x10^3/uL (1-3.4); LYMPHOCYTES % (AUTO) 10 % (22-44); MD NO; MEAN CORPUSCULAR HEMOGLOBIN 28.2 pg (27.5-34.5); MEAN CORPUSCULAR VOLUME 85.3 fL (81-97); MEAN PLATELET VOLUME 7.4 fL (7.4-10.4); MONOCYTES # (AUTO) 0.84 x10^3/uL (0.2-0.8); MONOCYTES % (AUTO) 11 % (2-9); NEUTROPHILS # (AUTO) 5.89 x10^3/uL (1.8-6.8); NEUTROPHILS % (AUTO) 78 % (42-75); PLATELET COUNT 272 x10^3/uL (130-400)
[2019-02-15 05:21] LABS: ALBUMIN 2.3 g/dL (3.4-5.0); ANION GAP 8 mmol/L (5-15); CHLORIDE 95 mmol/L (98-107); CREATININE 6.08 mg/dL (0.7-1.3)
[2019-02-15] MEDS: HEPARIN 5,000 UNITS/ML, 1ML SQ SCH ×3 (05:27→19:57)
[2019-02-15] MEDS: LEVOTHYROXINE 75 MCG TABLET PO SCH (05:28)
[2019-02-15] MEDS: ACETAMINOPHEN 325 MG TABLET PO PRN (05:30)
[2019-02-15 07:56] VITALS: BP 102/65
[2019-02-15] MEDS: INSULIN REGULAR 100 UNITS/ML, 3ML VIAL SQ-INSULIN SCH ×4 (09:30→19:57)
[2019-02-15] MEDS: PIPERACILLIN/TAZO/PMX 2.25GM 50 ML IV SCH ×2 (09:30→21:10)
[2019-02-15] MEDS: SODIUM CHLORIDE FLUSH 10ML SYR IVF SCH ×2 (09:31→19:57)
[2019-02-15 13:22] VITALS: BP 101/64
[2019-02-15 18:58] VITALS: BP 99/63
[2019-02-15] MEDS: MICAFUNGIN 100 MG in SODIUM CHLORIDE 0.9% 100 ML IV SCH (19:56)
[2019-02-15] MEDS: INSULIN GLARGINE 100 UNITS/ML, PEN SQ-INSULIN SCH (19:57)
[2019-02-16 00:27] VITALS: BP 128/88
[2019-02-16] MEDS: ONDANSETRON 2MG/ML, 2ML IVPush PRN (03:11)
[2019-02-16 05:18] LABS: BASOPHILS # (AUTO) 0.04 x10^3/uL (0-0.1); BASOPHILS % (AUTO) 1 % (0-1); EOSINOPHILS # (AUTO) 0.11 x10^3/uL (0-0.4); EOSINOPHILS % (AUTO) 2 % (1-7); LYMPHOCYTES % (AUTO) 12 % (22-44); MD NO; MEAN CORPUSCULAR HEMOGLOBIN 28.3 pg (27.5-34.5); MEAN CORPUSCULAR HGB CONC 32.3 g/dL (33.2-36.2); MEAN CORPUSCULAR VOLUME 87.8 fL (81-97); MEAN PLATELET VOLUME 7.5 fL (7.4-10.4); MONOCYTES # (AUTO) 0.76 x10^3/uL (0.2-0.8); MONOCYTES % (AUTO) 12 % (2-9); NEUTROPHILS # (AUTO) 4.78 x10^3/uL (1.8-6.8); NEUTROPHILS % (AUTO) 74 % (42-75); PLATELET COUNT 250 x10^3/uL (130-400); RED BLOOD COUNT 3.57 x10^6/uL (4.38-5.82); RED CELL DISTRIBUTION WIDTH 14.9 % (9.4-14.8)
[2019-02-16 05:26] LABS: ALBUMIN 2.2 g/dL (3.4-5.0); ANION GAP 8 mmol/L (5-15); CHLORIDE 98 mmol/L (98-107)
[2019-02-16 05:29] LABS: CREATININE 4.58 mg/dL (0.7-1.3)
[2019-02-16] MEDS: LEVOTHYROXINE 75 MCG TABLET PO SCH (05:37)
[2019-02-16] MEDS: HEPARIN 5,000 UNITS/ML, 1ML SQ SCH ×3 (05:38→20:29)
[2019-02-16 07:30] VITALS: BP 100/52
[2019-02-16] MEDS: INSULIN REGULAR 100 UNITS/ML, 3ML VIAL SQ-INSULIN SCH ×4 (08:39→20:30)
[2019-02-16 10:23] LABS: CLOSTRIDIUM DIFFICILE ANTIGEN NEGATIVE; CLOSTRIDIUM DIFFICILE TOXIN NEGATIVE (Negative)
[2019-02-16] MEDS: PIPERACILLIN/TAZO/PMX 2.25GM 50 ML IV SCH (13:50)
[2019-02-16] MEDS: SODIUM CHLORIDE FLUSH 10ML SYR IVF SCH ×2 (13:50→20:30)
[2019-02-16 14:19] VITALS: BP 99/61
[2019-02-16] MEDS: ACETAMINOPHEN 325 MG TABLET PO PRN (16:07)
[2019-02-16 19:08] VITALS: BP 104/59
[2019-02-16] MEDS: MICAFUNGIN 100 MG in SODIUM CHLORIDE 0.9% 100 ML IV SCH ×2 (20:29→21:34)
[2019-02-16] MEDS: INSULIN GLARGINE 100 UNITS/ML, PEN SQ-INSULIN SCH (20:30)
[2019-02-17 01:39] VITALS: BP 99/62
[2019-02-17] MEDS: PIPERACILLIN/TAZO/PMX 2.25GM 50 ML IV SCH ×2 (02:06→15:19)
[2019-02-17] MEDS: HEPARIN 5,000 UNITS/ML, 1ML SQ SCH ×4 (04:54→21:00)
[2019-02-17] MEDS: METHOCARBAMOL 750 MG TABLET PO PRN ×2 (04:54→15:19)
[2019-02-17] MEDS: LEVOTHYROXINE 75 MCG TABLET PO SCH (04:54)
[2019-02-17 07:23] LABS: BASOPHILS # (AUTO) 0.06 x10^3/uL (0-0.1); BASOPHILS % (AUTO) 1 % (0-1); EOSINOPHILS # (AUTO) 0.09 x10^3/uL (0-0.4); EOSINOPHILS % (AUTO) 1 % (1-7); LYMPHOCYTES # (AUTO) 0.96 x10^3/uL (1-3.4); LYMPHOCYTES % (AUTO) 14 % (22-44); MD NO; MEAN CORPUSCULAR HEMOGLOBIN 28.2 pg (27.5-34.5); MEAN CORPUSCULAR HGB CONC 32.2 g/dL (33.2-36.2); MEAN CORPUSCULAR VOLUME 87.5 fL (81-97); MEAN PLATELET VOLUME 6.7 fL (7.4-10.4); MONOCYTES # (AUTO) 0.72 x10^3/uL (0.2-0.8); MONOCYTES % (AUTO) 10 % (2-9); NEUTROPHILS # (AUTO) 5.13 x10^3/uL (1.8-6.8); NEUTROPHILS % (AUTO) 74 % (42-75); PLATELET COUNT 251 x10^3/uL (130-400); RED BLOOD COUNT 3.46 x10^6/uL (4.38-5.82); RED CELL DISTRIBUTION WIDTH 14.8 % (9.4-14.8)
[2019-02-17 07:29] LABS: ALBUMIN 2.3 g/dL (3.4-5.0); ANION GAP 6 mmol/L (5-15); CALCIUM 7.9 mg/dL (8.5-10.1); CHLORIDE 96 mmol/L (98-107)
[2019-02-17 07:30] LABS: CREATININE 3.99 mg/dL (0.7-1.3)
[2019-02-17] MEDS: INSULIN REGULAR 100 UNITS/ML, 3ML VIAL SQ-INSULIN SCH ×4 (07:35→21:29)
[2019-02-17 08:00] VITALS: BP 104/60
[2019-02-17] MEDS: SODIUM CHLORIDE FLUSH 10ML SYR IVF SCH ×2 (09:00→21:29)
[2019-02-17 13:57] VITALS: BP 98/60
[2019-02-17 18:48] VITALS: BP 94/57
[2019-02-17] MEDS: MICAFUNGIN 100 MG in SODIUM CHLORIDE 0.9% 100 ML IV SCH (21:27)
[2019-02-17] MEDS: INSULIN GLARGINE 100 UNITS/ML, PEN SQ-INSULIN SCH (21:28)
[2019-02-18] MEDS: PIPERACILLIN/TAZO/PMX 2.25GM 50 ML IV SCH ×2 (02:55→16:05)
[2019-02-18 03:15] VITALS: BP 104/69
[2019-02-18] MEDS: HEPARIN 5,000 UNITS/ML, 1ML SQ SCH ×3 (05:00→20:04)
[2019-02-18] MEDS: LEVOTHYROXINE 75 MCG TABLET PO SCH (05:32)
[2019-02-18 05:47] LABS: BASOPHILS # (AUTO) 0.03 x10^3/uL (0-0.1); BASOPHILS % (AUTO) 0 % (0-1); EOSINOPHILS # (AUTO) 0.15 x10^3/uL (0-0.4); EOSINOPHILS % (AUTO) 2 % (1-7); LYMPHOCYTES # (AUTO) 1.23 x10^3/uL (1-3.4); LYMPHOCYTES % (AUTO) 20 % (22-44); MD NO; MEAN CORPUSCULAR HEMOGLOBIN 28.1 pg (27.5-34.5); MEAN CORPUSCULAR HGB CONC 32.5 g/dL (33.2-36.2); MEAN CORPUSCULAR VOLUME 86.6 fL (81-97); MEAN PLATELET VOLUME 7.4 fL (7.4-10.4); MONOCYTES # (AUTO) 0.52 x10^3/uL (0.2-0.8); MONOCYTES % (AUTO) 8 % (2-9); NEUTROPHILS # (AUTO) 4.26 x10^3/uL (1.8-6.8); NEUTROPHILS % (AUTO) 69 % (42-75); PLATELET COUNT 217 x10^3/uL (130-400); RED BLOOD COUNT 3.19 x10^6/uL (4.38-5.82); RED CELL DISTRIBUTION WIDTH 14.8 % (9.4-14.8)
[2019-02-18 05:52] LABS: ANION GAP 8 mmol/L (5-15); CALCIUM 7.6 mg/dL (8.5-10.1); CHLORIDE 95 mmol/L (98-107)
[2019-02-18 06:53] LABS: HCT (SEDRATE) 27.6 % (39.2-51.8)
[2019-02-18 07:30] VITALS: BP 114/73
[2019-02-18] MEDS: SODIUM CHLORIDE FLUSH 10ML SYR IVF SCH ×2 (09:00→20:42)
[2019-02-18] MEDS: INSULIN REGULAR 100 UNITS/ML, 3ML VIAL SQ-INSULIN SCH ×4 (09:13→20:40)
[2019-02-18] MEDS: [UNRECOGNIZED DRUG - OTHER] IVPB SCH (12:54)
[2019-02-18] MEDS: DEXTROSE 5% IVPB SCH (12:54)
[2019-02-18 14:26] VITALS: BP 117/71
[2019-02-18 19:35] VITALS: BP 105/60
[2019-02-18] MEDS: INSULIN GLARGINE 100 UNITS/ML, PEN SQ-INSULIN SCH (20:38)
[2019-02-19 01:56] VITALS: BP 108/67
[2019-02-19] MEDS: PIPERACILLIN/TAZO/PMX 2.25GM 50 ML IV SCH ×2 (03:48→16:02)
[2019-02-19] MEDS: LEVOTHYROXINE 75 MCG TABLET PO SCH (04:22)
[2019-02-19] MEDS: HEPARIN 5,000 UNITS/ML, 1ML SQ SCH ×3 (05:00→20:08)
[2019-02-19 05:15] LABS: BASOPHILS # (AUTO) 0.06 x10^3/uL (0-0.1); BASOPHILS % (AUTO) 1 % (0-1); EOSINOPHILS # (AUTO) 0.17 x10^3/uL (0-0.4); EOSINOPHILS % (AUTO) 3 % (1-7); LYMPHOCYTES # (AUTO) 1.27 x10^3/uL (1-3.4); LYMPHOCYTES % (AUTO) 21 % (22-44); MD NO; MEAN CORPUSCULAR HEMOGLOBIN 28.4 pg (27.5-34.5); MEAN CORPUSCULAR HGB CONC 32.4 g/dL (33.2-36.2); MEAN CORPUSCULAR VOLUME 87.8 fL (81-97); MEAN PLATELET VOLUME 7.5 fL (7.4-10.4); MONOCYTES # (AUTO) 0.59 x10^3/uL (0.2-0.8); MONOCYTES % (AUTO) 10 % (2-9); NEUTROPHILS # (AUTO) 3.89 x10^3/uL (1.8-6.8); NEUTROPHILS % (AUTO) 65 % (42-75); PLATELET COUNT 218 x10^3/uL (130-400); RED BLOOD COUNT 3.25 x10^6/uL (4.38-5.82); RED CELL DISTRIBUTION WIDTH 14.8 % (9.4-14.8)
[2019-02-19 05:20] LABS: ANION GAP 9 mmol/L (5-15); CALCIUM 7.9 mg/dL (8.5-10.1); CHLORIDE 96 mmol/L (98-107)
[2019-02-19 05:22] LABS: CREATININE 4.26 mg/dL (0.7-1.3)
[2019-02-19 07:48] VITALS: BP 106/64
[2019-02-19] MEDS: INSULIN REGULAR 100 UNITS/ML, 3ML VIAL SQ-INSULIN SCH ×4 (08:33→20:08)
[2019-02-19] MEDS: SODIUM CHLORIDE FLUSH 10ML SYR IVF SCH ×2 (08:33→20:09)
[2019-02-19] MEDS: [UNRECOGNIZED DRUG - OTHER] IVPB SCH (12:59)
[2019-02-19] MEDS: DEXTROSE 5% IVPB SCH (12:59)
[2019-02-19 15:10] VITALS: BP 109/62
[2019-02-19] MEDS ORDERED: DEXTROSE 5% 50 ML IV SCH (16:00)
[2019-02-19 19:05] VITALS: BP 106/62
[2019-02-19] MEDS: ERGOCALCIFEROL 50,000 UNIT CAPSULE PO SCH (20:08)
[2019-02-19] MEDS ORDERED: INSULIN GLARGINE 100 UNITS/ML, PEN SQ-INSULIN SCH (21:00)
[2019-02-20 01:09] VITALS: BP 103/60
[2019-02-20] MEDS: LEVOTHYROXINE 75 MCG TABLET PO SCH (05:05)
[2019-02-20] MEDS: HEPARIN 5,000 UNITS/ML, 1ML SQ SCH ×2 (05:05→13:29)
[2019-02-20] MEDS: PIPERACILLIN/TAZO/PMX 2.25GM 50 ML IV SCH (05:05)
[2019-02-20] MEDS: INSULIN REGULAR 100 UNITS/ML, 3ML VIAL SQ-INSULIN SCH ×2 (08:08→13:29)
[2019-02-20 08:13] VITALS: BP 112/67
[2019-02-20] MEDS: SODIUM CHLORIDE FLUSH 10ML SYR IVF SCH (08:50)
[2019-02-20 10:54] LABS: BASOPHILS # (AUTO) 0.03 x10^3/uL (0-0.1); BASOPHILS % (AUTO) 1 % (0-1); EOSINOPHILS # (AUTO) 0.15 x10^3/uL (0-0.4); EOSINOPHILS % (AUTO) 2 % (1-7); LYMPHOCYTES # (AUTO) 1.55 x10^3/uL (1-3.4); LYMPHOCYTES % (AUTO) 25 % (22-44); MD NO; MEAN CORPUSCULAR HEMOGLOBIN 28.2 pg (27.5-34.5); MEAN CORPUSCULAR HGB CONC 32.2 g/dL (33.2-36.2); MEAN CORPUSCULAR VOLUME 87.5 fL (81-97); MONOCYTES # (AUTO) 0.66 x10^3/uL (0.2-0.8); MONOCYTES % (AUTO) 11 % (2-9); NEUTROPHILS # (AUTO) 3.84 x10^3/uL (1.8-6.8); NEUTROPHILS % (AUTO) 62 % (42-75); PLATELET COUNT 210 x10^3/uL (130-400); RED CELL DISTRIBUTION WIDTH 15.5 % (9.4-14.8)
[2019-02-20 11:01] LABS: ANION GAP 12 mmol/L (5-15); CHLORIDE 98 mmol/L (98-107); CREATININE 5.54 mg/dL (0.7-1.3)
[2019-02-20] MEDS: DEXTROSE 5% IVPB SCH (13:34)
[2019-02-20] MEDS: [UNRECOGNIZED DRUG - OTHER] IVPB SCH (13:34)
[2019-02-20] MEDS ORDERED: ERGO500017 PO (14:09)
[2019-02-20] MEDS ORDERED: ONDA4VIA60 IVPush (14:09)
[2019-02-20] MEDS ORDERED: GENT15CR6 TP (14:09)
[2019-02-20] MEDS ORDERED: PIPE2.255 IV (14:09)
[2019-02-20] MEDS ORDERED: METH750T2 PO (14:09)
[2019-02-20] MEDS ORDERED: LEVO75TA PO (14:09)
[2019-02-20] MEDS ORDERED: HEPA50002 SQ (14:09)
[2019-02-20] MEDS ORDERED: ACET325T26 PO (14:09)
[2019-02-20] MEDS ORDERED: AMPH50VI IV (14:09)
[2019-02-20] MEDS ORDERED: INSU100V5 SQ-INSULIN (14:09)
[2019-02-20] MEDS ORDERED: INSU100I13 SQ-INSULIN (14:09)
[2019-02-20] MEDS ORDERED: DOCU100C33 PO (14:09)
[2019-02-20 14:15] VITALS: BP 92/49
== END 2019-02-20 15:47 | DRG 690 ==
LOC: ED 14:42 → EDIP 14:43 → ED 15:08 → 4EST 16:11 → 4WST 02-19 10:47
PROVIDERS: ADMIT Internal Medicine; ATTEND Family Medicine
PROC: 0JH63XZ Insertion of Tunneled Vascular Access Device into Chest Subcutaneous Tissue and Fascia, Percutaneous Approach (ICD-10-PCS; principal; 2019-02-14)
PROC: 02HV33Z Insertion of Infusion Device into Superior Vena Cava, Percutaneous Approach (ICD-10-PCS; 2019-02-14)
PROC: B5181ZA Fluoroscopy of Superior Vena Cava using Low Osmolar Contrast, Guidance (ICD-10-PCS; 2019-02-14)
PROC: B548ZZA Ultrasonography of Superior Vena Cava, Guidance (ICD-10-PCS; 2019-02-14)
PROC: 5A1D70Z Performance of Urinary Filtration, Intermittent, Less than 6 Hours Per Day (ICD-10-PCS; 2019-02-14)
PROC: 5A1D70Z Performance of Urinary Filtration, Intermittent, Less than 6 Hours Per Day (ICD-10-PCS; 2019-02-15)
PROC: 5A1D70Z Performance of Urinary Filtration, Intermittent, Less than 6 Hours Per Day (ICD-10-PCS; 2019-02-16)
PROC: 5A1D70Z Performance of Urinary Filtration, Intermittent, Less than 6 Hours Per Day (ICD-10-PCS; 2019-02-18)
PROC: 5A1D70Z Performance of Urinary Filtration, Intermittent, Less than 6 Hours Per Day (ICD-10-PCS; 2019-02-20)
DX: N13.6 Pyonephrosis (principal); B37.49 Other urogenital candidiasis; N18.6 End stage renal disease; N17.9 Acute kidney failure, unspecified; N15.1 Renal and perinephric abscess; E78.5 Hyperlipidemia, unspecified; E11.22 Type 2 diabetes mellitus with diabetic chronic kidney disease; Z99.2 Dependence on renal dialysis; N25.0 Renal osteodystrophy; D63.1 Anemia in chronic kidney disease; E03.9 Hypothyroidism, unspecified; E55.9 Vitamin D deficiency, unspecified; E78.00 Pure hypercholesterolemia, unspecified; N40.0 Benign prostatic hyperplasia without lower urinary tract symptoms; Z79.4 Long term (current) use of insulin; Z80.0 Family history of malignant neoplasm of digestive organs; Z83.3 Family history of diabetes mellitus; Z86.73 Personal history of transient ischemic attack (TIA), and cerebral infarction without residual deficits; Z87.440 Personal history of urinary (tract) infections; Z90.5 Acquired absence of kidney
CPT/HCPCS: 36415; 36558; 71045; 74176; 76937; 77001; 80048; 80053; 80069; 81001; 82040; 82306; 82728; 82962; 83036; 83540; 83550; 83735; 83970; 84100; 84550; 85025; 85651; 86140; 86706; 87040; 87070; 87086; 87102; 87205; 87324; 87340; 89051; 90935; 90945; 93005; 96365; 99156; 99157; G0378; J0289; J0696; J1644; J1815; J2248; J2250; J2405; J2543; J3010; J7060; C1750; J1642; J2310; J2765